=== PATIENT | female | born 1975 | race American Indian/Alaskan Native ===

== ENCOUNTER 2017-03-14 08:54 | Inpatient (IN) | payer MEDICAID ==
--- NOTE | 2017-03-14 09:16 | C.PDOC ---
History Of Present Illness 42 year old female presents to ED for evaluation of intermittent RUQ abdominal pain radiating to her back and right shoulder for the past month. Pt denies any known exacerbating or alleviating factors. Notes that each episodes lasts for about 30 minutes each. Notes being seen at a hospital in [facility] last month, was diagnosed with gallstones, and was recommended to have surgery done but pt opted not to stay for surgery at that time. (+) nausea. Denies dysuria, hematuria, frequency, vomiting, diarrhea, or fever. Time Seen by Provider: 03/14/17 09:14 Chief Complaint (Nursing): Abdominal Pain History Per: Patient History/Exam Limitations: no limitations Onset/Duration Of Symptoms: Days Current Symptoms Are (Timing): Still Present Location Of Pain/Discomfort: RUQ Radiation Of Pain To:: Back Quality Of Discomfort: "Pain" Associated Symptoms: Nausea, Back Pain. denies: Fever, Chills, Diarrhea, Loss Of Appetite, Chest Pain, Constipation, Urinary Symptoms Exacerbating Factors: None Alleviating Factors: None Recent travel outside of the [place]: No Additional History Per: Patient Abnormal Vaginal Bleeding: No Past Medical History Reviewed: Historical Data, Nursing Documentation, Vital Signs Vital Signs: Last Vital Signs Temp 98.9 F 03/17/17 16:00 Pulse 78 03/17/17 16:00 Resp 20 03/17/17 16:00 BP 133/84 03/17/17 16:00 Pulse Ox 100 03/17/17 16:00 - Medical History PMH: Gall Bladder Disease (stones) Surgical History: Appendectomy Family History: States: Unknown Family Hx - Social History Hx Alcohol Use: No Hx Substance Use: No - Immunization History Hx Tetanus Toxoid Vaccination: Yes Hx Influenza Vaccination: No Hx Pneumococcal Vaccination: No Review Of Systems Except As Marked, All Systems Reviewed And Found Negative. Constitutional: Negative for: Fever, Chills Cardiovascular: Negative for: Chest Pain, Palpitations Respiratory: Negative for: Cough, Shortness of Breath Gastrointestinal: Positive for: Nausea, Abdominal Pain. Negative for: Vomiting , Diarrhea, Constipation Genitourinary: Negative for: Dysuria, Frequency, Hematuria Musculoskeletal: Positive for: Shoulder Pain (right), Back Pain Neurological: Negative for: Weakness, Numbness, Headache, Dizziness Physical Exam - Physical Exam Appears: Non-toxic, No Acute Distress Skin: Normal Color, Warm, Dry Head: Atraumatic, Normacephalic Eye(s): bilateral: Normal Inspection Oral Mucosa: Moist Cardiovascular: Rhythm Regular, No Murmur Respiratory: Normal Breath Sounds, No Rales, No Rhonchi, No Wheezing Gastrointestinal/Abdominal: Soft, Tenderness (RUQ), No Guarding, No Rebound Back: No CVA Tenderness Extremity: Normal ROM Neurological/Psych: Oriented x3, Normal Speech ED Course And Treatment - Laboratory Results Result Diagrams: 03/17/17 13:58 03/17/17 13:58 O2 Sat by Pulse Oximetry: 100 (RA) Pulse Ox Interpretation: Normal Medical Decision Making Medical Decision Making: Plan: Blood work Urinalysis Gallbladder ultrasound Toradol IVP Reassess 11:04 EKG is NSR at rate 68 bpm. 11:30 Case discussed with Surgeon Dr. Jackson. Recommends MRCP. Discussed with GI Dr. Reagan who will be in consult as well. Disposition - Disposition Disposition: HOSPITALIZED Disposition Time: 11:30 Condition: GOOD - Clinical Impression Clinical Impression: Cholelithiasis, Biliary colic, Elevated LFTs, Total bilirubin, elevated - Scribe Statement The provider has reviewed the documentation as recorded by the Scribe Maureen Mensah and Daniel Tovar All medical record entries made by the Scribe were at my direction and personally dictated by me. I have reviewed the chart and agree that the record accurately reflects my personal performance of the history, physical exam, medical decision making, and the department course for this patient. I have also personally directed, reviewed, and agree with the discharge instructions and disposition.
[2017-03-14 09:45] LABS: SQUAMOUS EPITHIAL 4 /hpf (0-5); URINE BILIRUBIN NEGATIVE (NEGATIVE); URINE BLOOD 1+ (NEGATIVE); URINE CLARITY Clear (Clear); URINE COLOR Amber (YELLOW); URINE GLUCOSE (UA) NORMAL (Normal); URINE LEUKOCYTE ESTERASE NEG Leu/uL (Negative); URINE NITRATE NEGATIVE (NEGATIVE); URINE PROTEIN NEGATIVE (NEGATIVE)
[2017-03-14 09:46] LABS: BASO # 0.1 K/uL (0.0-0.2); EOS # 0.2 K/uL (0.0-0.7); EOS % 2.6 % (0.0-4.0); HEMOGLOBIN 13.5 g/dL (11.0-16.0); LYMPH % 28.6 % (20.0-40.0); MEAN CELL VOLUME 94.9 fL (81.0-99.0); MEAN CORPUSCULAR HGB CONC 33.7 g/dL (33.0-37.0); MEAN PLATELET VOLUME 7.8 fL (7.2-11.7); MONO # 0.4 K/uL (0.0-0.8); MONO % 5.5 % (0.0-10.0); NEUT # 4.4 K/uL (1.8-7.0); NEUT % 62.3 % (50.0-75.0); RBC 4.22 Mil/uL (3.80-5.20); RED CELL DISTRIBUTION WIDTH 13.4 % (11.5-14.5)
[2017-03-14 10:20] LABS: ALB/GLOB RATIO 1.1 (1.0-2.1); ALBUMIN 4.1 g/dL (3.5-5.0); BLOOD UREA NITROGEN 7 mg/dL (7-17); CALCIUM 8.5 mg/dl (8.6-10.4); GFR AFRICAN-AMERICAN > 60; GFR NON-AFRICAN AMERICAN > 60; LIPASE 175 U/L (23-300)
[2017-03-14 11:00] LABS: ALT/SGPT 1229 U/L (9-52); AST/SGOT 959 U/L (14-36)
--- NOTE | 2017-03-14 11:23 | US ---
HISTORY: ruq pain COMPARISON: None. TECHNIQUE: Sonographic evaluation of the right upper quadrant of the abdomen. FINDINGS: LIVER: Measures 16.1 cm in length. Mild increased slightly heterogeneous echogenicity of the liver parenchyma. No mass. Mild intrahepatic bile duct dilatation. GALLBLADDER: There are multiple gallstones seen. There is mild gallbladder wall thickening measures up to 4.1 millimeter. COMMON BILE DUCT: Measures 5.7 mm. No stones. No dilatation. PANCREAS: Unremarkable as visualized. No mass. No ductal dilatation. RIGHT KIDNEY: Measures 11.1 x 4.8 x 5.2 cm in length. Normal echogenicity. No calculus, mass, or hydronephrosis. AORTA: No aneurysmal dilatation. IVC: Unremarkable. OTHER FINDINGS: None . IMPRESSION: Multiple gallstones and mild gallbladder wall thickening. Prominent intrahepatic biliary ducts. Proximal common bile duct measures 5.7 millimeter. Mildly echogenic liver suggestive of hepatic steatosis.
--- NOTE | 2017-03-14 11:40 | CP.PCM.HP ---
<Bartolo Cotton - Last Filed: 03/14/17 17:01> History of Present Illness - History of Present Illness History of Present Illness: CC "Abdominal pain" HPI: Patient is a 42 year old female with no significant medical history is here complaining of colicky abdominal. Patient says she started having intermittent upper abdominal pain radiating to her upper back for about a month. She says she went to another hospital a month ago and was given Pepcid for which says did not relieve her symptoms. She says she has associated nausea but not vomiting. She says her pain has no associated with pain, is a sharp pain that can be 7 or 8 out of 10 at worst that last for a few hours at a time. She last seen by her PMD a year ago however has had to change PMD due to a change insurance. Patient also denies any fever, chills, vomiting, diarrhea, constipation, dysuria, has not had a menstrual cycle in two years from being on the Deppo shot, rash, dizziness, or lower extremity swelling. PMH: see above Surgeries: 3 c-sections FH: Mother has HTN, Uncle heart disease and cancer SH: Denies smoking, etoh use, illicit drug use, works as an project administrative assistant. PMD: none Present on Admission - Present on Admission Any Indicators Present on Admission: No History of DVT/PE: No History of Uncontrolled Diabetes: No Urinary Catheter: No Decubitus Ulcer Present: No History Surgical Site Infection Following: None Review of Systems - Review of Systems All systems: reviewed and no additional remarkable complaints except - Constitutional Constitutional: absent: Chills, Fever - EENT Eyes: absent: Change in Vision Ears: absent: Dizziness - Cardiovascular Cardiovascular: absent: Diaphoresis, Palpitations - Respiratory Respiratory: Pain on Inspiration. absent: Cough, Dyspnea - Gastrointestinal Gastrointestinal: Abdominal Pain. absent: Constipation, Diarrhea, Nausea, Vomiting - Genitourinary Genitourinary: absent: Difficulty Urinating, Dysuria - Reproductive: Female Reproductive:Female: Amenorrhea - Menstruation Menstruation: Amenorrhea - Neurological Neurological: absent: Weakness - Endocrine Endocrine: absent: Fatigue, Palpitations Past Patient History - Infectious Disease Hx of Infectious Diseases: None - Past Social History Smoking Status: Never Smoked - GASTROINTESTINAL Hx Gall Bladder Disease: Yes (stones) - PSYCHIATRIC Hx Substance Use: No - SURGICAL HISTORY Hx Appendectomy: Yes - ANESTHESIA Hx Anesthesia: Yes Hx Anesthesia Reactions: No Hx Malignant Hyperthermia: No Meds Allergies/Adverse Reactions: Allergies Allergy/AdvReac Type Severity Reaction Status Date / Time No Known Allergies Allergy Verified 02/23/17 17:32 Physical Exam - Constitutional Appears: Non-toxic, No Acute Distress - Eye Exam Eye Exam: Normal appearance, PERRL. absent: Scleral icterus Pupil Exam: NORMAL ACCOMODATION - ENT Exam ENT Exam: Normal Exam - Respiratory Exam Respiratory Exam: Clear to Auscultation Bilateral. absent: Rales, Rhonchi, Wheezes - Cardiovascular Exam Cardiovascular Exam: REGULAR RHYTHM, RRR, +S1, +S2. absent: Gallop, Rubs - GI/Abdominal Exam GI & Abdominal Exam: Normal Bowel Sounds, Soft. absent: Guarding, Organomegaly , Rebound, Tenderness - Extremities Exam Extremities exam: Positive for: normal inspection. Negative for: calf tenderness, pedal edema - Back Exam Back exam: NORMAL INSPECTION. absent: CVA tenderness (L), CVA tenderness (R), paraspinal tenderness - Neurological Exam Neurological exam: Oriented x3 - Psychiatric Exam Psychiatric exam: Normal Affect, Normal Mood - Skin Skin Exam: Dry, Normal Color, Warm Results - Vital Signs Recent Vital Signs: Last Vital Signs Temp 99.4 F 03/14/17 08:57 Pulse 83 03/14/17 08:57 Resp 18 03/14/17 08:57 BP 131/84 03/14/17 08:57 Pulse Ox 100 03/14/17 11:37 - Labs Result Diagrams: 03/14/17 09:38 03/14/17 09:38 Labs: Laboratory Results - last 24 hr 03/14/17 03/14/17 03/14/17 09:23 09:38 09:38 WBC 7.0 RBC 4.22 Hgb 13.5 Hct 40.0 MCV 94.9 MCH 32.0 H MCHC 33.7 RDW 13.4 Plt Count 298 MPV 7.8 Neut % (Auto) 62.3 Lymph % (Auto) 28.6 [place] % (Auto) 5.5 Eos % (Auto) 2.6 Baso % (Auto) 1.0 Neut # 4.4 Lymph # 2.0 [place] # 0.4 Eos # 0.2 Baso # 0.1 Sodium Potassium Chloride Carbon Dioxide Anion Gap BUN Creatinine Est GFR ( Amer) Est GFR (Non-Af Amer) Random Glucose Calcium Total Bilirubin AST ALT Alkaline Phosphatase Total Protein Albumin Globulin Albumin/Globulin Ratio Lipase Urine Color [place] Urine Clarity Clear Urine pH 5.0 Ur Specific [place] 1.015 Urine Protein Negative Urine Glucose (UA) Normal Urine Ketones Negative Urine Blood 1+ H Urine Nitrate Negative Urine Bilirubin Negative Urine Urobilinogen 4.0 H Ur Leukocyte Esterase Neg Urine WBC (Auto) 1 Urine RBC (Auto) 4 H Ur Squamous Epith Cells 4 Urine HCG, Qual Negative 03/14/17 09:38 WBC RBC Hgb Hct MCV MCH MCHC RDW Plt Count MPV Neut % (Auto) Lymph % (Auto) [place] % (Auto) Eos % (Auto) Baso % (Auto) Neut # Lymph # [place] # Eos # Baso # Sodium 137 Potassium 4.1 Chloride 103 Carbon Dioxide 26 Anion Gap 11 BUN 7 Creatinine 0.8 Est GFR ( Amer) > 60 Est GFR (Non-Af Amer) > 60 Random Glucose 91 Calcium 8.5 L Total Bilirubin 2.9 H AST 959 H ALT 1229 H Alkaline Phosphatase 141 H Total Protein 7.7 Albumin 4.1 Globulin 3.6 Albumin/Globulin Ratio 1.1 Lipase 175 Urine Color Urine Clarity Urine pH Ur Specific [place] Urine Protein Urine Glucose (UA) Urine Ketones Urine Blood Urine Nitrate Urine Bilirubin Urine Urobilinogen Ur Leukocyte Esterase Urine WBC (Auto) Urine RBC (Auto) Ur Squamous Epith Cells Urine HCG, Qual Assessment & Plan (1) Biliary colic Assessment and Plan: Patient admitted to regular floor as an inpatient. labs, CXR, and ultrasound were reviewed. Negative Ese sign. Have consulted surgery and GI, help appreciated. US shows gallstones MRCP shows evidence of gallstones without cholecystitis, CBD is normal caliber. Follow up morning labs, cbc, cmp, mag, phos, lipid panel, hbg a1c. Urine preg is negative Lipase is 272 Status: Acute (2) Gall stones Assessment and Plan: as seen on ultrasound, consulted GI and general surgery, help appreciated. Status: Acute (3) Elevated LFTs Assessment and Plan: Will need to follow up Hepatitis panel, Tylenol level. GI recommendation. Most likely secondary to a bilary obstruction. Status: Acute (4) Total bilirubin, elevated Assessment and Plan: See above note, will need to follow up MRCP. Status: Acute (5) Prophylactic measure Assessment and Plan: Emiliex 40mg SQ, SCDS Protonix 40mg IV. Status: Acute <Kaleigh Nava V - Last Filed: 03/14/17 17:57> Results - Vital Signs Recent Vital Signs: Last Vital Signs Temp 98.0 F 03/14/17 13:21 Pulse 80 03/14/17 13:21 Resp 16 03/14/17 13:21 BP 122/85 03/14/17 13:21 Pulse Ox 100 03/14/17 13:21 - Labs Result Diagrams: 03/14/17 09:38 03/14/17 15:56 Labs: Laboratory Results - last 24 hr 03/14/17 03/14/17 03/14/17 09:23 09:38 09:38 WBC 7.0 RBC 4.22 Hgb 13.5 Hct 40.0 MCV 94.9 MCH 32.0 H MCHC 33.7 RDW 13.4 Plt Count 298 MPV 7.8 Neut % (Auto) 62.3 Lymph % (Auto) 28.6 [place] % (Auto) 5.5 Eos % (Auto) 2.6 Baso % (Auto) 1.0 Neut # 4.4 Lymph # 2.0 [place] # 0.4 Eos # 0.2 Baso # 0.1 Sodium Potassium Chloride Carbon Dioxide Anion Gap BUN Creatinine Est GFR ( Amer) Est GFR (Non-Af Amer) Random Glucose Calcium Total Bilirubin AST ALT Alkaline Phosphatase Total Protein Albumin Globulin Albumin/Globulin Ratio Lipase Urine Color [place] Urine Clarity Clear Urine pH 5.0 Ur Specific [place] 1.015 Urine Protein Negative Urine Glucose (UA) Normal Urine Ketones Negative Urine Blood 1+ H Urine Nitrate Negative Urine Bilirubin Negative Urine Urobilinogen 4.0 H Ur Leukocyte Esterase Neg Urine WBC (Auto) 1 Urine RBC (Auto) 4 H Ur Squamous Epith Cells 4 Urine HCG, Qual Negative Acetaminophen Hepatitis A IgM Ab Hep Bs Antigen Hep B Core IgM Ab Hepatitis C Antibody 03/14/17 03/14/17 03/14/17 09:38 13:24 15:56 WBC RBC Hgb Hct MCV MCH MCHC RDW Plt Count MPV Neut % (Auto) Lymph % (Auto) [place] % (Auto) Eos % (Auto) Baso % (Auto) Neut # Lymph # [place] # Eos # Baso # Sodium 137 Potassium 4.1 Chloride 103 Carbon Dioxide 26 Anion Gap 11 BUN 7 Creatinine 0.8 Est GFR ( Amer) > 60 Est GFR (Non-Af Amer) > 60 Random Glucose 91 Calcium 8.5 L Total Bilirubin 2.9 H AST 959 H ALT 1229 H Alkaline Phosphatase 141 H Total Protein 7.7 Albumin 4.1 Globulin 3.6 Albumin/Globulin Ratio 1.1 Lipase 175 Urine Color Urine Clarity Urine pH Ur Specific [place] Urine Protein Urine Glucose (UA) Urine Ketones Urine Blood Urine Nitrate Urine Bilirubin Urine Urobilinogen Ur Leukocyte Esterase Urine WBC (Auto) Urine RBC (Auto) Ur Squamous Epith Cells Urine HCG, Qual Acetaminophen < 10.0 L Hepatitis A IgM Ab Negative Hep Bs Antigen Negative Hep B Core IgM Ab Negative Hepatitis C Antibody Negative 03/14/17 15:56 WBC RBC Hgb Hct MCV MCH MCHC RDW Plt Count MPV Neut % (Auto) Lymph % (Auto) [place] % (Auto) Eos % (Auto) Baso % (Auto) Neut # Lymph # [place] # Eos # Baso # Sodium 136 Potassium 4.2 Chloride 104 Carbon Dioxide 26 Anion Gap 11 BUN 7 Creatinine 0.7 Est GFR ( Amer) > 60 Est GFR (Non-Af Amer) > 60 Random Glucose 70 Calcium 8.0 L Total Bilirubin 5.1 H AST 735 H D ALT 1157 H Alkaline Phosphatase 150 H Total Protein 7.7 Albumin 4.0 Globulin 3.7 Albumin/Globulin Ratio 1.1 Lipase Urine Color Urine Clarity Urine pH Ur Specific [place] Urine Protein Urine Glucose (UA) Urine Ketones Urine Blood Urine Nitrate Urine Bilirubin Urine Urobilinogen Ur Leukocyte Esterase Urine WBC (Auto) Urine RBC (Auto) Ur Squamous Epith Cells Urine HCG, Qual Acetaminophen Hepatitis A IgM Ab Hep Bs Antigen Hep B Core IgM Ab Hepatitis C Antibody Attending/Attestation - Attestation I have personally seen and examined this patient.: Yes I have fully participated in the care of the patient.: Yes I have reviewed all pertinent clinical information: Yes Notes (Text): Patient seen, examined and case discussed with day-time resident. Patient seen in [address] in the Emergency Room at 12:10PM on 03/14/17. ED Physician has spoken with surgeon, Dr Jackson, requested for GI consult and MRCP. Patient accompanied with her at bedside. 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 Patient reports she had called the ambulance and brought her to [facility]. Patient was told she had gallstones and was recommended for surgery. This the first time she has been told she has had gallstones. Patient however had to chart picker her children and did not have coverage in [place] left the ED in the evening. Patient reports became more frequent today which is why she is back in the hospital. Patient reports she went to [place] last month, but was given Famotidine but has not had relief. Patient reports sparingly uses tylenol. Patient denies prior liver history. patient denies medical history but reports she has not had well physical for the past year. I reviewed EKG which is normal sinus rhythm. Assessment/Plan (1) Biliary colic Cholelithiasis Assessment and Plan: * Patient admitted to regular floor as an inpatient. * General surgery (Dr. Jackson) on board-->help appreciated * GI (Dr. Reagan) on board-->help appreciated * Abdominal US (03/14/17): multiple gallstones and mild gallbladder wall thickening. Prominent intrahepatic biliary ducts. Proximal common bile duct measures 5.7mm. Mildly echogenic liver suggestive of hepatic steatosis * MRCP (03/14/17): gallstones without evidence of acute cholecystitis. Mildly distended gallbladder. CBD is normal in caliber and shape. No evidence of choledocholithiasis. No evidence of acute pathology in upper abdomen. * Antibiotics: * Flagyl 500mg IVQ 8H (Active since 03/14/17) * Ciprofloxacin 400mg IVPB Q12H (Active since 03/14/17) * Lipase is 272 * Afebrile, does not appear jaundice, and mild RUQ * Pending HIDA Status: Acute (2) Transaminitis Assessment and Plan: * GI (Dr. Reagan) on board-->help appreciated * Tylenol level <10.0 * Hepatitis panel: negative * Epistein Hunter virus, liver Kidney, mitcohondrial, smooth muscle ordered, antinuclear Status: Acute (3) Obesity Assessment and Plan: * Check lipid panel, TSH, [id number] Status: Chronic (4) Prophylactic measure Assessment and Plan: * Lovenox 40mg SQdaily * SCDS * Protonix 40mg IV daily * NS 125 cc/hr * Zofran 4mg IVQ6H PRN nausea Status: Acute
--- NOTE | 2017-03-14 11:43 | RAD ---
PROCEDURE: CHEST RADIOGRAPH, 1 VIEW HISTORY: preop COMPARISON: None available. FINDINGS: LUNGS: Clear. PLEURA: No pneumothorax or pleural fluid seen. CARDIOVASCULAR: Normal. OSSEOUS STRUCTURES: No significant abnormalities. VISUALIZED UPPER ABDOMEN: Normal. OTHER FINDINGS: None. IMPRESSION: No active disease.
[2017-03-14] MEDS ORDERED: Pantoprazole 40 mg EC Tab PO SCH (12:45)
[2017-03-14 14:12] LABS: HEPATITIS B SURFACE AG NEGATIVE (NEGATIVE)
[2017-03-14 14:18] LABS: HEPATITIS A IGM NEGATIVE (NEGATIVE); HEPATITIS B CORE AB Negative (NEGATIVE)
--- NOTE | 2017-03-14 14:22 | MRI ---
PROCEDURE: Magnetic Resonance Cholangiopancreatography HISTORY: COMPARISON: Comparison is made with the previous same-day ultrasound of the gallbladder. TECHNIQUE: Multiplanar, multisequence MR images of the abdomen were obtained, including heavily T2 weighted MRCP images of the biliary system. Rotating maximum intensity projection images of the biliary system were generated. FINDINGS: MRCP: The common bile duct is of a normal caliber. No evidence of choledocholithiasis. No intrahepatic biliary ductal dilatation. LIVER: Mild hepatic steatosis is noted. There is 8 millimeter cyst seen at the liver dome. Otherwise the liver is grossly unremarkable. GALLBLADDER: Small gallstones and sludge noted in the gallbladder. No evidence of acute cholecystitis. The gallbladder is mildly distended. SPLEEN: Unremarkable. PANCREAS: Unremarkable. ADRENALS: Unremarkable. KIDNEYS: There is 1.2 centimeter cyst at the posterior aspect of the right kidney upper pole. There is sub centimeter cyst also seen at the upper pole of the left kidney. No evidence of hydronephrosis. AORTA: No aneurysm. ASCITES: None. OTHER FINDINGS: Trace bilateral pleural effusion seen. IMPRESSION: Gallstones without evidence of acute cholecystitis. Mildly distended gallbladder. The CBD is normal in caliber and shape. No evidence of choledocholithiasis. No evidence of acute pathology in the upper abdomen.
[2017-03-14 14:29] LABS: HEPATITIS C ANTIBODY Negative (NEGATIVE)
[2017-03-14] MEDS ORDERED: Ciprofloxacin 400mg/200ml D5W 400 MG/200 ML BAG IVPB SCH ×2 (14:30→18:00)
--- NOTE | 2017-03-14 14:34 | CP.PCM.CON ---
History of Present Illness - History of Present Illness History of Present Illness: CC: RUQ pain HPI: Patient developed intense RUQ pain yesterday and went to [facility] but left and came here today. Found to have markedly elevated LFTs in hepatocellular pattern, and gallstones without ductal dilatation noted on sonogram. MRCP reveals no stones in CBD. Past Patient History - Infectious Disease Hx of Infectious Diseases: None - Past Social History Smoking Status: Never Smoked - GASTROINTESTINAL Hx Gall Bladder Disease: Yes (stones) - PSYCHIATRIC Hx Substance Use: No - SURGICAL HISTORY Hx Appendectomy: Yes - ANESTHESIA Hx Anesthesia: Yes Hx Anesthesia Reactions: No Hx Malignant Hyperthermia: No Meds Allergies/Adverse Reactions: Allergies Allergy/AdvReac Type Severity Reaction Status Date / Time No Known Allergies Allergy Verified 02/23/17 17:32 - Medications Medications: Current Medications Enoxaparin Sodium (Lovenox) 40 mg SC DAILY [facility] Hydromorphone HCl (Dilaudid) 0.5 mg IVP Q3 PRN PRN Reason: Pain, moderate (4-7) Ciprofloxacin (Cipro 400mg/200ml Dsw) 400 mg in 200 mls @ 133 mls/hr IVPB Q8H [facility] Metronidazole (Flagyl) 500 mg in 100 mls @ 100 mls/hr IVPB Q8 [facility] Sodium Chloride (Sodium Chloride 0.9%) 1,000 mls @ 125 mls/hr IV .Q8H [facility] Ondansetron HCl (Zofran Inj) 4 mg IVP Q6 PRN PRN Reason: Nausea/Vomiting Pantoprazole Sodium (Protonix Inj) 40 mg IVP DAILY [facility] Last Admin: 03/14/17 13:36 Dose: 40 mg Results - Vital Signs Recent Vital Signs: Last Vital Signs Temp 98.0 F 03/14/17 13:21 Pulse 80 03/14/17 13:21 Resp 16 03/14/17 13:21 BP 122/85 03/14/17 13:21 Pulse Ox 100 03/14/17 13:21 - Labs Result Diagrams: 03/14/17 09:38 03/14/17 09:38 Labs: Laboratory Results - last 24 hr 03/14/17 03/14/17 03/14/17 09:23 09:38 09:38 WBC 7.0 RBC 4.22 Hgb 13.5 Hct 40.0 MCV 94.9 MCH 32.0 H MCHC 33.7 RDW 13.4 Plt Count 298 MPV 7.8 Neut % (Auto) 62.3 Lymph % (Auto) 28.6 [place] % (Auto) 5.5 Eos % (Auto) 2.6 Baso % (Auto) 1.0 Neut # 4.4 Lymph # 2.0 [place] # 0.4 Eos # 0.2 Baso # 0.1 Sodium Potassium Chloride Carbon Dioxide Anion Gap BUN Creatinine Est GFR ( Amer) Est GFR (Non-Af Amer) Random Glucose Calcium Total Bilirubin AST ALT Alkaline Phosphatase Total Protein Albumin Globulin Albumin/Globulin Ratio Lipase Urine Color [place] Urine Clarity Clear Urine pH 5.0 Ur Specific [place] 1.015 Urine Protein Negative Urine Glucose (UA) Normal Urine Ketones Negative Urine Blood 1+ H Urine Nitrate Negative Urine Bilirubin Negative Urine Urobilinogen 4.0 H Ur Leukocyte Esterase Neg Urine WBC (Auto) 1 Urine RBC (Auto) 4 H Ur Squamous Epith Cells 4 Urine HCG, Qual Negative Hepatitis A IgM Ab Hep Bs Antigen Hep B Core IgM Ab Hepatitis C Antibody 03/14/17 03/14/17 09:38 13:24 WBC RBC Hgb Hct MCV MCH MCHC RDW Plt Count MPV Neut % (Auto) Lymph % (Auto) [place] % (Auto) Eos % (Auto) Baso % (Auto) Neut # Lymph # [place] # Eos # Baso # Sodium 137 Potassium 4.1 Chloride 103 Carbon Dioxide 26 Anion Gap 11 BUN 7 Creatinine 0.8 Est GFR ( Amer) > 60 Est GFR (Non-Af Amer) > 60 Random Glucose 91 Calcium 8.5 L Total Bilirubin 2.9 H AST 959 H ALT 1229 H Alkaline Phosphatase 141 H Total Protein 7.7 Albumin 4.1 Globulin 3.6 Albumin/Globulin Ratio 1.1 Lipase 175 Urine Color Urine Clarity Urine pH Ur Specific [place] Urine Protein Urine Glucose (UA) Urine Ketones Urine Blood Urine Nitrate Urine Bilirubin Urine Urobilinogen Ur Leukocyte Esterase Urine WBC (Auto) Urine RBC (Auto) Ur Squamous Epith Cells Urine HCG, Qual Hepatitis A IgM Ab Negative Hep Bs Antigen Negative Hep B Core IgM Ab Negative Hepatitis C Antibody Negative Assessment & Plan (1) Cholelithiasis Assessment and Plan: Possible cholecystitis rec: HIDA. Surg consult Status: Acute (2) Elevated LFTs Assessment and Plan: R/O hepatitis rec: hep profile. See orders Status: Acute
[2017-03-14] MEDS: metroNIDAZOLE IV 500 mg/100 ml 500 MG/100 ML BAG IVPB SCH ×2 (14:40→21:13)
--- NOTE | 2017-03-14 15:12 | CP.PCM.CON ---
History of Present Illness - History of Present Illness History of Present Illness: General Surgery Dr. Jackson 42 y/o F w/ PMHx of gallstones presents to the ED c/o RUQ abd pain. Pt reports intermittent RUQ abd pain w/ radiation to her back x1mon. Pt was seen in another hospital ED at which time, pt was Dx w/ gallstones. Pt decided not to have surgery at that time. Nothing seems to make pain better or worse. Pt admits to nausea but denies F/C, vomiting, D/C. US performed in ED shows cholelithiasis but no cholecystitis or choledocholithaisis. MRCP is also negative for acute cholecystitis and choledocholithiasis. PMHx: see above Meds: reviewed in chart NKDA PSHx: x3 FHx: HTN, HD SHx: denies tobacco, EtOH, drug use Review of Systems - Review of Systems All systems: reviewed and no additional remarkable complaints except (see HPI) Past Patient History - Infectious Disease Hx of Infectious Diseases: None - Past Medical History & Family History Past Medical History?: Yes - Past Social History Smoking Status: Never Smoked - MUSCULOSKELETAL/RHEUMATOLOGICAL Hx Falls: No - GASTROINTESTINAL Hx Gall Bladder Disease: Yes (stones) - GENITOURINARY/GYNECOLOGICAL Hx Urinary Tract Infection: Yes - PSYCHIATRIC Hx Substance Use: No - SURGICAL HISTORY Hx Appendectomy: Yes - ANESTHESIA Hx Anesthesia: Yes Hx Anesthesia Reactions: No Hx Malignant Hyperthermia: No Meds Allergies/Adverse Reactions: Allergies Allergy/AdvReac Type Severity Reaction Status Date / Time No Known Allergies Allergy Verified 02/23/17 17:32 - Medications Medications: Current Medications Enoxaparin Sodium (Lovenox) 40 mg SC DAILY [facility] Hydromorphone HCl (Dilaudid) 0.5 mg IVP Q3 PRN PRN Reason: Pain, moderate (4-7) Ciprofloxacin (Cipro 400mg/200ml Dsw) 400 mg in 200 mls @ 133 mls/hr IVPB Q8H [facility] Metronidazole (Flagyl) 500 mg in 100 mls @ 100 mls/hr IVPB Q8 [facility] Last Admin: 03/14/17 14:40 Dose: 100 mls/hr Sodium Chloride (Sodium Chloride 0.9%) 1,000 mls @ 125 mls/hr IV .Q8H [facility] Ondansetron HCl (Zofran Inj) 4 mg IVP Q6 PRN PRN Reason: Nausea/Vomiting Pantoprazole Sodium (Protonix Inj) 40 mg IVP DAILY [facility] Last Admin: 03/14/17 13:36 Dose: 40 mg Physical Exam - Constitutional Appears: Non-toxic, No Acute Distress - Head Exam Head Exam: NORMAL INSPECTION - Eye Exam Eye Exam: Normal appearance - ENT Exam ENT Exam: Mucous Membranes Moist - Respiratory Exam Respiratory Exam: NORMAL BREATHING PATTERN. absent: Accessory Muscle Use, Respiratory Distress - Cardiovascular Exam Cardiovascular Exam: absent: Bradycardia, Tachycardia - GI/Abdominal Exam GI & Abdominal Exam: Soft, Tenderness (epigastric/RUQ TTP). absent: Distended, Firm, Guarding, Rebound, Rigid - Extremities Exam Extremities exam: Positive for: normal inspection - Neurological Exam Neurological exam: Alert, Oriented x3 - Psychiatric Exam Psychiatric exam: Normal Affect, Normal Mood - Skin Skin Exam: Dry, Intact, Normal Color, Warm Results - Vital Signs Recent Vital Signs: Last Vital Signs Temp 98.0 F 03/14/17 13:21 Pulse 80 03/14/17 13:21 Resp 16 03/14/17 13:21 BP 122/85 03/14/17 13:21 Pulse Ox 100 03/14/17 13:21 - Labs Result Diagrams: 03/14/17 09:38 03/14/17 09:38 Labs: Laboratory Results - last 24 hr 03/14/17 03/14/17 03/14/17 09:23 09:38 09:38 WBC 7.0 RBC 4.22 Hgb 13.5 Hct 40.0 MCV 94.9 MCH 32.0 H MCHC 33.7 RDW 13.4 Plt Count 298 MPV 7.8 Neut % (Auto) 62.3 Lymph % (Auto) 28.6 [place] % (Auto) 5.5 Eos % (Auto) 2.6 Baso % (Auto) 1.0 Neut # 4.4 Lymph # 2.0 [place] # 0.4 Eos # 0.2 Baso # 0.1 Sodium Potassium Chloride Carbon Dioxide Anion Gap BUN Creatinine Est GFR ( Amer) Est GFR (Non-Af Amer) Random Glucose Calcium Total Bilirubin AST ALT Alkaline Phosphatase Total Protein Albumin Globulin Albumin/Globulin Ratio Lipase Urine Color [place] Urine Clarity Clear Urine pH 5.0 Ur Specific [place] 1.015 Urine Protein Negative Urine Glucose (UA) Normal Urine Ketones Negative Urine Blood 1+ H Urine Nitrate Negative Urine Bilirubin Negative Urine Urobilinogen 4.0 H Ur Leukocyte Esterase Neg Urine WBC (Auto) 1 Urine RBC (Auto) 4 H Ur Squamous Epith Cells 4 Urine HCG, Qual Negative Hepatitis A IgM Ab Hep Bs Antigen Hep B Core IgM Ab Hepatitis C Antibody 03/14/17 03/14/17 09:38 13:24 WBC RBC Hgb Hct MCV MCH MCHC RDW Plt Count MPV Neut % (Auto) Lymph % (Auto) [place] % (Auto) Eos % (Auto) Baso % (Auto) Neut # Lymph # [place] # Eos # Baso # Sodium 137 Potassium 4.1 Chloride 103 Carbon Dioxide 26 Anion Gap 11 BUN 7 Creatinine 0.8 Est GFR ( Amer) > 60 Est GFR (Non-Af Amer) > 60 Random Glucose 91 Calcium 8.5 L Total Bilirubin 2.9 H AST 959 H ALT 1229 H Alkaline Phosphatase 141 H Total Protein 7.7 Albumin 4.1 Globulin 3.6 Albumin/Globulin Ratio 1.1 Lipase 175 Urine Color Urine Clarity Urine pH Ur Specific [place] Urine Protein Urine Glucose (UA) Urine Ketones Urine Blood Urine Nitrate Urine Bilirubin Urine Urobilinogen Ur Leukocyte Esterase Urine WBC (Auto) Urine RBC (Auto) Ur Squamous Epith Cells Urine HCG, Qual Hepatitis A IgM Ab Negative Hep Bs Antigen Negative Hep B Core IgM Ab Negative Hepatitis C Antibody Negative - Imaging and Cardiology US - abdomen Status: Image reviewed by me, Report reviewed by me MRI - abdomen Status: Image reviewed by me, Report reviewed by me Assessment & Plan - Assessment and Plan (Free Text) Assessment: 42 y/o F w/ abd pain 2/2 biliary cholic vs acute cholecystitis w/ transaminitis and hyperbilirubinemia - repeat CMP - will order HIDA if no improvement in LFTs/T. Bili - f/u GI recs - f/u Hepatitis panel - cont pain management - cont anti-emetic - GI/DVT PPx Pt seen and discussed w/ Dr. Renetta Hughes DO PGY2
[2017-03-14] MEDS: Sodium Chloride 0.9% 1,000 ML IV SCH ×2 (15:21→22:20)
[2017-03-14 16:17] LABS: ALB/GLOB RATIO 1.1 (1.0-2.1); AST/SGOT 735 U/L (14-36); BLOOD UREA NITROGEN 7 mg/dL (7-17); GFR AFRICAN-AMERICAN > 60; GFR NON-AFRICAN AMERICAN > 60
[2017-03-14 16:23] LABS: ALT/SGPT 1157 U/L (9-52)
--- NOTE | 2017-03-14 23:14 | NM ---
EXAM: NM Hepatobiliary Scan CLINICAL HISTORY: 42 years old, female; Pain; Ruq pain; Additional info: Ruq pain, gallstones TECHNIQUE: Frontal dynamic images of the abdomen and pelvis were obtained over 60 minutes following the intravenous administration of 6 mCi Tc99m mebrofenin. Delayed images were acquired at 3 hours. COMPARISON: No relevant prior studies available. FINDINGS: Liver: Unremarkable. Homogeneous radiotracer uptake. Bile ducts: Unremarkable. Clearly visualized. Gallbladder: Nonvisualization at 3 hours. Stomach and bowel: Unremarkable. Radiotracer activity is seen in the small bowel. IMPRESSION: Nonvisualization of gallbladder at 3 hours. Findings consistent with acute cholecystitis in the appropriate clinical setting.
[2017-03-15] MEDS: Ciprofloxacin 400mg/200ml D5W 400 MG/200 ML BAG IVPB SCH ×2 (01:41→15:12)
[2017-03-15] MEDS: metroNIDAZOLE IV 500 mg/100 ml 500 MG/100 ML BAG IVPB SCH ×3 (05:24→21:26)
--- NOTE | 2017-03-15 08:01 | CP.PCM.PN ---
Objective - Vital Signs/Intake and Output Vital Signs (last 24 hours): Temp Pulse Resp BP Pulse Ox 98.5 F 80 20 105/68 98 03/15/17 00:00 03/15/17 00:00 03/15/17 00:00 03/15/17 00:00 03/15/17 00:00 Intake and Output: 03/15/17 03/15/17 06:59 18:59 Intake Total 975 Balance 975 - Medications Medications: Current Medications Enoxaparin Sodium (Lovenox) 40 mg SC DAILY [facility] Hydromorphone HCl (Dilaudid) 0.5 mg IVP Q3 PRN PRN Reason: Pain, moderate (4-7) Last Admin: 03/15/17 02:20 Dose: 0.5 mg Metronidazole (Flagyl) 500 mg in 100 mls @ 100 mls/hr IVPB Q8 [facility] Last Admin: 03/15/17 05:24 Dose: 100 mls/hr Sodium Chloride (Sodium Chloride 0.9%) 1,000 mls @ 125 mls/hr IV .Q8H [facility] Last Admin: 03/14/17 22:20 Dose: Not Given Ciprofloxacin (Cipro 400mg/200ml Dsw) 400 mg in 200 mls @ 133 mls/hr IVPB Q12H [facility] Last Admin: 03/15/17 01:41 Dose: 133 mls/hr Ondansetron HCl (Zofran Inj) 4 mg IVP Q6 PRN PRN Reason: Nausea/Vomiting Pantoprazole Sodium (Protonix Inj) 40 mg IVP DAILY [facility] Last Admin: 03/14/17 13:36 Dose: 40 mg - Labs Labs: 03/14/17 09:38 03/14/17 15:56 Assessment and Plan (1) Biliary colic Status: Acute (2) Gall stones Status: Acute (3) Elevated LFTs Status: Acute (4) Total bilirubin, elevated Status: Acute (5) Prophylactic measure Status: Acute
[2017-03-15] MEDS: Sodium Chloride 0.9% 1,000 ML IV SCH (08:13)
[2017-03-15 08:15] LABS: BASO % 0.7 % (0.0-2.0); EOS # 0.1 K/uL (0.0-0.7); EOS % 2.3 % (0.0-4.0); HEMOGLOBIN 12.5 g/dL (11.0-16.0); LYMPH # 1.3 K/uL (1.0-4.3); LYMPH % 24.3 % (20.0-40.0); MEAN CELL VOLUME 94.5 fL (81.0-99.0); MEAN CORPUSCULAR HEMOGLOBIN 32.3 pg (27.0-31.0); MEAN CORPUSCULAR HGB CONC 34.2 g/dL (33.0-37.0); MEAN PLATELET VOLUME 8.1 fL (7.2-11.7); MONO # 0.4 K/uL (0.0-0.8); MONO % 6.3 % (0.0-10.0); NEUT # 3.7 K/uL (1.8-7.0); NEUT % 66.4 % (50.0-75.0); NRBC % 0.1 % (0.0-2.0); RBC 3.88 Mil/uL (3.80-5.20); RED CELL DISTRIBUTION WIDTH 13.5 % (11.5-14.5); WHITE BLOOD COUNT 5.5 K/uL (4.8-10.8)
[2017-03-15 08:22] LABS: INR 1.2; PROTHROMBIN TIME 13.1 SECONDS (9.7-12.2)
[2017-03-15 08:38] LABS: ALB/GLOB RATIO 1.1 (1.0-2.1); ALBUMIN 3.9 g/dL (3.5-5.0); ALT/SGPT 900 U/L (9-52); AST/SGOT 424 U/L (14-36); BLOOD UREA NITROGEN 8 mg/dL (7-17); CALCIUM 8.4 mg/dl (8.6-10.4); GFR AFRICAN-AMERICAN > 60; GFR NON-AFRICAN AMERICAN > 60; HDL CHOLESTEROL 54 mg/dL (30-70); MAGNESIUM 1.9 mg/dL (1.6-2.3)
[2017-03-15 08:42] LABS: LDL CHOLESTEROL 93 mg/dL (0-129)
--- NOTE | 2017-03-15 09:37 | CP.PCM.PN ---
Subjective - Date & Time of Evaluation Date of Evaluation: 03/15/17 Time of Evaluation: 09:35 - Subjective Subjective: Medical Attending Note: Patient seen and examined at bedside. Patient reports around 1AM, she had abdominal pain, which required PRN pain medication. Patient continues to feel nauseous. Patient denies fever, denies chills, denies chest pain, denies palpitations, +abdominal pain, +nausea, denies constipation, denies dysuria, denies hematuria. Objective - Vital Signs/Intake and Output Vital Signs (last 24 hours): Temp Pulse Resp BP Pulse Ox 99.1 F 82 20 124/81 97 03/15/17 08:00 03/15/17 08:00 03/15/17 08:00 03/15/17 08:00 03/15/17 08:00 Intake and Output: 03/15/17 03/15/17 06:59 18:59 Intake Total 975 Balance 975 - Medications Medications: Current Medications Hydromorphone HCl (Dilaudid) 0.5 mg IVP Q3 PRN PRN Reason: Pain, moderate (4-7) Last Admin: 03/15/17 02:20 Dose: 0.5 mg Metronidazole (Flagyl) 500 mg in 100 mls @ 100 mls/hr IVPB Q8 [facility] Last Admin: 03/15/17 05:24 Dose: 100 mls/hr Sodium Chloride (Sodium Chloride 0.9%) 1,000 mls @ 125 mls/hr IV .Q8H [facility] Last Admin: 03/15/17 08:13 Dose: Not Given Ciprofloxacin (Cipro 400mg/200ml Dsw) 400 mg in 200 mls @ 133 mls/hr IVPB Q12H [facility] Last Admin: 03/15/17 01:41 Dose: 133 mls/hr Ondansetron HCl (Zofran Inj) 4 mg IVP Q6 PRN PRN Reason: Nausea/Vomiting Pantoprazole Sodium (Protonix Inj) 40 mg IVP DAILY [facility] Last Admin: 03/14/17 13:36 Dose: 40 mg - Labs Labs: 03/15/17 08:04 03/15/17 08:04 PT 13.1 SECONDS (9.7-12.2) H 03/15/17 08:04 INR 1.2 03/15/17 08:04 APTT 26 SECONDS (21-34) 03/15/17 08:04 - Constitutional Appears: Non-toxic, No Acute Distress - Head Exam Head Exam: NORMAL INSPECTION - Eye Exam Eye Exam: EOMI, PERRL - ENT Exam ENT Exam: Mucous Membranes Moist - Respiratory Exam Respiratory Exam: Clear to Ausculation Bilateral, NORMAL BREATHING PATTERN. absent: Rales, Rhonchi, Wheezes - Cardiovascular Exam Cardiovascular Exam: REGULAR RHYTHM, +S1, +S2 - GI/Abdominal Exam GI & Abdominal Exam: Soft, Normal Bowel Sounds. absent: Distended, Firm, Guarding, Rigid, Tenderness, Rebound - Extremities Exam Extremities Exam: absent: Pedal Edema, Tenderness Additional comments: butterfly tatoo over right lower extremity - Back Exam Back Exam: absent: CVA tenderness (L), CVA tenderness (R) - Neurological Exam Neurological Exam: Alert, Awake, Oriented x3 Neuro motor strength exam: Left Upper Extremity: 5, Right Upper Extremity: 5, Left Lower Extremity: 5, Right Lower Extremity: 5 - Psychiatric Exam Psychiatric exam: Normal Affect, Normal Mood - Skin Skin Exam: Dry, Intact, Normal Color, Warm. absent: Petechiae, Rash Assessment and Plan (1) Acute cholecystitis Assessment & Plan: General surgery (Dr. Jackson) on consult-->help appreciated GI (Dr. Reagan) on consult-->help appreciated Chest Xray (03/14/17): no active disease EKG (03/14/17): normal sinus rhythm Patient is symptomatic of pain and nausea. HIDA (03/14/17): nonvisualization of gallbladder at 3 hours. Findings consistent with acute cholecystitis in appropriate clinical setting. MRCP (03/14/17): gallstones without evidence of acute cholecystitis. Mild distended gallbladder. CBD is normal in caliber and shape. No evidence of choledocholithiasis. No evidence of acute pathology in upper abdomen. Gallbladder US (03/14/17): multiple gallstones and mild gallbladder wall thickening. Prominent intrahepatic biliary ducts. Proximal common bile duct measures 5.7 mm. Mildly echogenic liver suggestive of hepatic steatosis. As per Detsky's Critiera , patient's cardiac risk index is low with class I 6% complications. Surgery and anesthesia to explain risks and benefits respectively if surgery is warranted. Discussed case with Dr. Jackson (general surgery), he would like input from GI to see if additional workup is needed by GI given elevated direct bilirubin yesterday evening; discussed blood work results from today. Will f/u GI when they start their rounds. Ciprofloxacin 400mg IVPB Q12H (active 03/15/17) Flagyl 500mg IVPB Q8H (active 03/15/17) Status: Acute (2) Transaminitis Assessment & Plan: Liver enzymes down trending HIDA (03/14/17): nonvisualization of gallbladder at 3 hours. Findings consistent with acute cholecystitis in appropriate clinical setting. MRCP (03/14/17): gallstones without evidence of acute cholecystitis. Mild distended gallbladder. CBD is normal in caliber and shape. No evidence of choledocholithiasis. No evidence of acute pathology in upper abdomen. Gallbladder US (03/14/17): multiple gallstones and mild gallbladder wall thickening. Prominent intrahepatic biliary ducts. Proximal common bile duct measures 5.7 mm. Mildly echogenic liver suggestive of hepatic steatosis. Tylenol level: negative Hepatitis panel: negative Status: Acute (3) Obesity Assessment & Plan: Lipid panel: within normal limits pending [id number] Status: Chronic (4) Cholelithiasis Assessment & Plan: HIDA (03/14/17): nonvisualization of gallbladder at 3 hours. Findings consistent with acute cholecystitis in appropriate clinical setting. MRCP (03/14/17): gallstones without evidence of acute cholecystitis. Mild distended gallbladder. CBD is normal in caliber and shape. No evidence of choledocholithiasis. No evidence of acute pathology in upper abdomen. Gallbladder US (03/14/17): multiple gallstones and mild gallbladder wall thickening. Prominent intrahepatic biliary ducts. Proximal common bile duct measures 5.7 mm. Mildly echogenic liver suggestive of hepatic steatosis. General surgery (Dr. Jackson) on board-->help appreciated GI (Dr. Reagan) on board-->help appreciated Discussed case with surgery, would like input from GI in regards to additional workup needed. Status: Acute (5) Prophylactic measure Assessment & Plan: c/w Lovenox 40mg subqdaily * No plans for surgery today; general surgery awaiting input from GI if additional workup is needed c/w protonix 40mg IVq daily Dilaudid 0.5mg IVP Q3PRN pain moderate Zofran 4mg IVP Q 6H PRN nausea/vomitting NS 125 cc/hr Status: Acute
[2017-03-15] MEDS ORDERED: Enoxaparin 40 mg Syringe SC SCH ×2 (10:00→10:15)
--- NOTE | 2017-03-15 10:13 | CP.PCM.PN ---
Subjective - Date & Time of Evaluation Date of Evaluation: 03/15/17 Time of Evaluation: 10:09 - Subjective Subjective: CC: RUQ pain Cholecystitis confirmed by ABDULAZIZ Feels better, RUQ pain under control Says she was seen by surgeon and plans for cholecystectomy are underway Objective - Vital Signs/Intake and Output Vital Signs (last 24 hours): Temp Pulse Resp BP Pulse Ox 99.1 F 82 20 124/81 97 03/15/17 08:00 03/15/17 08:00 03/15/17 08:00 03/15/17 08:00 03/15/17 08:00 Intake and Output: 03/15/17 03/15/17 06:59 18:59 Intake Total 975 Balance 975 - Medications Medications: Current Medications Hydromorphone HCl (Dilaudid) 0.5 mg IVP Q3 PRN PRN Reason: Pain, moderate (4-7) Last Admin: 03/15/17 02:20 Dose: 0.5 mg Metronidazole (Flagyl) 500 mg in 100 mls @ 100 mls/hr IVPB Q8 [facility] Last Admin: 03/15/17 05:24 Dose: 100 mls/hr Sodium Chloride (Sodium Chloride 0.9%) 1,000 mls @ 125 mls/hr IV .Q8H [facility] Last Admin: 03/15/17 08:13 Dose: Not Given Ciprofloxacin (Cipro 400mg/200ml Dsw) 400 mg in 200 mls @ 133 mls/hr IVPB Q12H [facility] Last Admin: 03/15/17 01:41 Dose: 133 mls/hr Ondansetron HCl (Zofran Inj) 4 mg IVP Q6 PRN PRN Reason: Nausea/Vomiting Pantoprazole Sodium (Protonix Inj) 40 mg IVP DAILY [facility] Last Admin: 03/14/17 13:36 Dose: 40 mg - Labs Labs: 03/15/17 08:04 03/15/17 08:04 PT 13.1 SECONDS (9.7-12.2) H 03/15/17 08:04 INR 1.2 03/15/17 08:04 APTT 26 SECONDS (21-34) 03/15/17 08:04 - Constitutional Appears: Well, No Acute Distress - Head Exam Head Exam: NORMOCEPHALIC - Eye Exam Eye Exam: absent: Scleral icterus - Respiratory Exam Respiratory Exam: Clear to Ausculation Bilateral - Cardiovascular Exam Cardiovascular Exam: REGULAR RHYTHM - GI/Abdominal Exam GI & Abdominal Exam: Soft. absent: Tenderness - Neurological Exam Neurological Exam: Alert, Awake, Oriented x3 Assessment and Plan (1) Cholelithiasis Assessment & Plan: Acute Cholecystitis Rec: Lap Dalila. No further GI workup planned. Discussed with dr Nava Status: Acute (2) Elevated LFTs Assessment & Plan: Due to cholecystitis Should gradually improve Status: Acute
--- NOTE | 2017-03-15 10:52 | CP.PCM.PN ---
Subjective - Date & Time of Evaluation Date of Evaluation: 03/15/17 Time of Evaluation: 07:15 - Subjective Subjective: General surgery progress note for Dr. Brittany Sharma, PGY-1 Pt S & E at bedside. Pt reports improved ab pain overnight, continues with some nausea. Denies emesis, F & C, other problems, ever having ab pain before. Objective - Vital Signs/Intake and Output Vital Signs (last 24 hours): Temp Pulse Resp BP Pulse Ox 99.1 F 82 20 124/81 97 03/15/17 08:00 03/15/17 08:00 03/15/17 08:00 03/15/17 08:00 03/15/17 08:00 Intake and Output: 03/15/17 03/15/17 06:59 18:59 Intake Total 975 Balance 975 - Medications Medications: Current Medications Enoxaparin Sodium (Lovenox) 40 mg SC DAILY [facility] Last Admin: 03/15/17 10:23 Dose: 40 mg Hydromorphone HCl (Dilaudid) 0.5 mg IVP Q3 PRN PRN Reason: Pain, moderate (4-7) Last Admin: 03/15/17 02:20 Dose: 0.5 mg Metronidazole (Flagyl) 500 mg in 100 mls @ 100 mls/hr IVPB Q8 [facility] Last Admin: 03/15/17 05:24 Dose: 100 mls/hr Sodium Chloride (Sodium Chloride 0.9%) 1,000 mls @ 125 mls/hr IV .Q8H [facility] Last Admin: 03/15/17 08:13 Dose: Not Given Ciprofloxacin (Cipro 400mg/200ml Dsw) 400 mg in 200 mls @ 133 mls/hr IVPB Q12H [facility] Last Admin: 03/15/17 01:41 Dose: 133 mls/hr Ondansetron HCl (Zofran Inj) 4 mg IVP Q6 PRN PRN Reason: Nausea/Vomiting Pantoprazole Sodium (Protonix Inj) 40 mg IVP DAILY [facility] Last Admin: 03/15/17 10:23 Dose: 40 mg - Labs Labs: 03/15/17 08:04 03/15/17 08:04 PT 13.1 SECONDS (9.7-12.2) H 03/15/17 08:04 INR 1.2 03/15/17 08:04 APTT 26 SECONDS (21-34) 03/15/17 08:04 - Constitutional Appears: Non-toxic, No Acute Distress - Head Exam Head Exam: ATRAUMATIC, NORMAL INSPECTION, NORMOCEPHALIC - Eye Exam Eye Exam: EOMI, Normal appearance - ENT Exam ENT Exam: Mucous Membranes Moist, Normal Exam - Neck Exam Neck Exam: Full ROM, Normal Inspection - Respiratory Exam Respiratory Exam: NORMAL BREATHING PATTERN - Cardiovascular Exam Cardiovascular Exam: REGULAR RHYTHM, +S1, +S2 - GI/Abdominal Exam GI & Abdominal Exam: Soft. absent: Distended (obese), Firm, Guarding, Rigid, Tenderness, Rebound - Extremities Exam Extremities Exam: Normal Inspection. absent: Pedal Edema - Neurological Exam Neurological Exam: Alert, Awake, CN II-XII Intact, Oriented x3 - Psychiatric Exam Psychiatric exam: Normal Affect, Normal Mood - Skin Skin Exam: Dry, Intact, Normal Color, Warm Assessment and Plan - Assessment and Plan (Free Text) Assessment: 42F w/cholecystitis and transaminitis Plan: NPO Pain control Anti-emetic HIDA scan positive T bili down trending (2.2 from 5.1) Case and Dr. Renetta Reagan Plan for OR tomorrow- laparoscopic cholecystectomy Will consent the pt NANDA attending Edith, PGY-1
[2017-03-15] MEDS: Potassium Chl 20 mEq in D5-NS 1,000 ML IV SCH ×2 (13:32→21:26)
[2017-03-16] MEDS: Ciprofloxacin 400mg/200ml D5W 400 MG/200 ML BAG IVPB SCH ×4 (01:30→15:14)
[2017-03-16] MEDS: metroNIDAZOLE IV 500 mg/100 ml 500 MG/100 ML BAG IVPB SCH ×3 (05:26→21:20)
[2017-03-16 08:04] LABS: INR 1.2; PROTHROMBIN TIME 13.5 SECONDS (9.7-12.2)
[2017-03-16 08:06] LABS: BASO % 0.7 % (0.0-2.0); EOS # 0.1 K/uL (0.0-0.7); EOS % 2.2 % (0.0-4.0); HEMOGLOBIN 12.6 g/dL (11.0-16.0); LYMPH # 1.8 K/uL (1.0-4.3); LYMPH % 27.7 % (20.0-40.0); MEAN CELL VOLUME 94.5 fL (81.0-99.0); MEAN CORPUSCULAR HEMOGLOBIN 31.4 pg (27.0-31.0); MEAN CORPUSCULAR HGB CONC 33.2 g/dL (33.0-37.0); MEAN PLATELET VOLUME 7.9 fL (7.2-11.7); MONO # 0.4 K/uL (0.0-0.8); NEUT # 4.2 K/uL (1.8-7.0); NEUT % 63.4 % (50.0-75.0); NRBC % 0.2 % (0.0-2.0); RED CELL DISTRIBUTION WIDTH 13.5 % (11.5-14.5); WHITE BLOOD COUNT 6.6 K/uL (4.8-10.8)
[2017-03-16 08:38] LABS: ALB/GLOB RATIO 1.1 (1.0-2.1); ALBUMIN 3.6 g/dL (3.5-5.0); ALT/SGPT 594 U/L (9-52); AST/SGOT 152 U/L (14-36); BLOOD UREA NITROGEN 5 mg/dL (7-17); CALCIUM 8.1 mg/dl (8.6-10.4); GFR AFRICAN-AMERICAN > 60; GFR NON-AFRICAN AMERICAN > 60; MAGNESIUM 1.7 mg/dL (1.6-2.3)
[2017-03-16] MEDS: Potassium Chl 20 mEq in D5-NS 1,000 ML IV SCH ×2 (13:54→20:03)
[2017-03-16] MEDS ORDERED: Propofol 10 mg/ml Inj (20 ML) ONE ×2 (14:35)
[2017-03-16] MEDS ORDERED: Midazolam 2 MG/2 ML VIAL ONE (14:35)
[2017-03-16] MEDS ORDERED: Rocuronium 10 mg/ml (5 ml) ONE (14:38)
[2017-03-16] MEDS ORDERED: Lactated Ringer's 1,000 ML IV ONE ×3 (14:40→19:00)
[2017-03-16] MEDS ORDERED: Lidocaine 1% Inj (20ml) ONE (15:00)
[2017-03-16] MEDS ORDERED: Bupivacaine HCl 0.5% PF (10 ml) Inj ONE (15:00)
[2017-03-16] MEDS ORDERED: Neostigmine Methylsulfate 3mg/3ml Syringe IV ONE (15:56)
[2017-03-16] MEDS ORDERED: HYDROmorphone 0.5 mg/0.5 ml ISec IVP PRN (16:38)
--- NOTE | 2017-03-16 16:38 | PCM.SURG1 ---
Surgeon's Initial Post Op Note - Surgeon's Notes Surgeon: Dr. Jackson Settlement Technician: PGY4, Brittney PGY1, Rodrick OMS III Type of Anesthesia: General Endo Pre-Operative Diagnosis: Acute cholecystitis Operative Findings: see operative report Post-Operative Diagnosis: Acute cholecystitis Operation Performed: Laparoscopic Cholecystectomy Specimen/Specimens Removed: Gallbladder Estimated Blood Loss: EBL {In ML}: 10 Blood Products Given: N/A Drains Used: No Drains Post-Op Condition: Good Date of Surgery/Procedure: 03/16/17 Time of Surgery/Procedure: 15:00
[2017-03-16] MEDS ORDERED: Ophthalmic Irrigation, Soln OU ONE ×2 (19:04→19:15)
[2017-03-16] MEDS ORDERED: Tobramycin 0.3% OPHT SOLN OU STA ×2 (19:05→19:16)
[2017-03-16 20:05] VITALS: RESP 20
--- NOTE | 2017-03-16 20:23 | CP.PCM.PN ---
<Nickolas Borges - Last Filed: 03/16/17 20:17> Subjective - Date & Time of Evaluation Date of Evaluation: 03/16/17 Time of Evaluation: 07:45 - Subjective Subjective: Patient seen and examined. No overnight events reported. Denies any fever or current abdominal pain. She does complain of diarrhea. Denies any nausea or vomiting. Objective - Vital Signs/Intake and Output Vital Signs (last 24 hours): Temp Pulse Resp BP Pulse Ox 99 F 78 20 115/74 100 03/16/17 18:35 03/16/17 18:35 03/16/17 18:35 03/16/17 18:35 03/16/17 18:35 Intake and Output: 03/16/17 03/17/17 18:59 06:59 Intake Total 975 Output Total 10 Balance 975 -10 - Medications Medications: Current Medications Metronidazole (Flagyl) 500 mg in 100 mls @ 100 mls/hr IVPB Q8 [facility] Last Admin: 03/16/17 13:52 Dose: 100 mls/hr Ciprofloxacin (Cipro 400mg/200ml Dsw) 400 mg in 200 mls @ 133 mls/hr IVPB Q12H [facility] Last Admin: 03/16/17 15:08 Dose: Not Given Potassium Chloride/Dextrose/Sod Cl (Potassium Chl 20 Meq In D5-Ns) 1,000 mls @ 125 mls/hr IV .Q8H [facility] Last Admin: 03/16/17 20:03 Dose: 125 mls/hr Ketorolac Tromethamine (Toradol) 15 mg IVP Q6 PRN PRN Reason: Pain, moderate (4-7) Last Admin: 03/16/17 20:01 Dose: 15 mg Ketorolac Tromethamine (Toradol) 30 mg IVP Q6 PRN PRN Reason: Pain, severe (8-10) Ondansetron HCl (Zofran Inj) 4 mg IVP Q6 PRN PRN Reason: Nausea/Vomiting Last Admin: 03/16/17 11:52 Dose: 4 mg Pantoprazole Sodium (Protonix Inj) 40 mg IVP DAILY [facility] Last Admin: 03/16/17 09:47 Dose: 40 mg - Labs Labs: 03/16/17 07:41 03/16/17 07:41 PT 13.5 SECONDS (9.7-12.2) H 03/16/17 07:41 INR 1.2 03/16/17 07:41 APTT 26 SECONDS (21-34) 03/15/17 08:04 - Additional Findings Additional findings: - Constitutional Appears: Non-toxic, No Acute Distress - Head Exam Head Exam: NORMAL INSPECTION - Eye Exam Eye Exam: EOMI, PERRL - ENT Exam ENT Exam: Mucous Membranes Moist - Respiratory Exam Respiratory Exam: Clear to Ausculation Bilateral, NORMAL BREATHING PATTERN. absent: Rales, Rhonchi, Wheezes - Cardiovascular Exam Cardiovascular Exam: REGULAR RHYTHM, +S1, +S2 - GI/Abdominal Exam GI & Abdominal Exam: Soft, Normal Bowel Sounds. absent: Distended, Firm, Guarding, Rigid, Tenderness, Rebound - Extremities Exam Extremities Exam: absent: Pedal Edema, Tenderness Additional comments: butterfly tatoo over right lower extremity - Back Exam Back Exam: absent: CVA tenderness (L), CVA tenderness (R) - Neurological Exam Neurological Exam: Alert, Awake, Oriented x3 Neuro motor strength exam: Left Upper Extremity: 5, Right Upper Extremity: 5, Left Lower Extremity: 5, Right Lower Extremity: 5 - Psychiatric Exam Psychiatric exam: Normal Affect, Normal Mood - Skin Skin Exam: Dry, Intact, Normal Color, Warm. absent: Petechiae, Rash Assessment and Plan - Assessment and Plan (Free Text) Plan: (1) Acute cholecystitis General surgery (Dr. Jackson) on consult-->help appreciated Scheduled for surgery today. GI (Dr. Reagan) on consult-->help appreciated Chest Xray (03/14/17): no active disease EKG (03/14/17): normal sinus rhythm Patient is symptomatic of pain and nausea. HIDA (03/14/17): nonvisualization of gallbladder at 3 hours. Findings consistent with acute cholecystitis in appropriate clinical setting. MRCP (03/14/17): gallstones without evidence of acute cholecystitis. Mild distended gallbladder. CBD is normal in caliber and shape. No evidence of choledocholithiasis. No evidence of acute pathology in upper abdomen. Gallbladder US (03/14/17): multiple gallstones and mild gallbladder wall thickening. Prominent intrahepatic biliary ducts. Proximal common bile duct measures 5.7 mm. Mildly echogenic liver suggestive of hepatic steatosis. As per Detsky's Critiera , patient's cardiac risk index is low with class I 6% complications. Surgery and anesthesia to explain risks and benefits respectively if surgery is warranted. Ciprofloxacin 400mg IVPB Q12H (active 03/15/17) Flagyl 500mg IVPB Q8H (active 03/15/17) (2) Transaminitis Liver enzymes down trending HIDA (03/14/17): nonvisualization of gallbladder at 3 hours. Findings consistent with acute cholecystitis in appropriate clinical setting. MRCP (03/14/17): gallstones without evidence of acute cholecystitis. Mild distended gallbladder. CBD is normal in caliber and shape. No evidence of choledocholithiasis. No evidence of acute pathology in upper abdomen. Gallbladder US (03/14/17): multiple gallstones and mild gallbladder wall thickening. Prominent intrahepatic biliary ducts. Proximal common bile duct measures 5.7 mm. Mildly echogenic liver suggestive of hepatic steatosis. Tylenol level: negative Hepatitis panel: negative Status: Acute (3) Obesity Lipid panel: within normal limits HgBA1c WNL @ 5.4 (4) Cholelithiasis HIDA (03/14/17): nonvisualization of gallbladder at 3 hours. Findings consistent with acute cholecystitis in appropriate clinical setting. MRCP (03/14/17): gallstones without evidence of acute cholecystitis. Mild distended gallbladder. CBD is normal in caliber and shape. No evidence of choledocholithiasis. No evidence of acute pathology in upper abdomen. Gallbladder US (03/14/17): multiple gallstones and mild gallbladder wall thickening. Prominent intrahepatic biliary ducts. Proximal common bile duct measures 5.7 mm. Mildly echogenic liver suggestive of hepatic steatosis. General surgery (Dr. Jackson) on board-->help appreciated GI (Dr. Reagan) on board-->help appreciated Discussed case with surgery, would like input from GI in regards to additional workup needed. Status: Acute (5) Prophylactic measure Restart Lovenox 40mg subqdaily c/w protonix 40mg IVq daily Toradol for pain control 15 Q6 for moderate pain and 30 Q6 for severe pain. Zofran 4mg IVP Q 6H PRN nausea/vomitting NS 125 cc/hr Status: Acute Patient discussed with Attending Nickolas Borges - PGY1 <Martin Mensah - Last Filed: 03/16/17 21:20> Objective - Vital Signs/Intake and Output Vital Signs (last 24 hours): Temp Pulse Resp BP Pulse Ox 99 F 78 20 115/74 100 03/16/17 18:35 03/16/17 18:35 03/16/17 18:35 03/16/17 18:35 03/16/17 18:35 Intake and Output: 03/16/17 03/17/17 18:59 06:59 Intake Total 975 Output Total 10 Balance 975 -10 - Medications Medications: Current Medications Metronidazole (Flagyl) 500 mg in 100 mls @ 100 mls/hr IVPB Q8 [facility] Last Admin: 03/16/17 13:52 Dose: 100 mls/hr Ciprofloxacin (Cipro 400mg/200ml Dsw) 400 mg in 200 mls @ 133 mls/hr IVPB Q12H [facility] Last Admin: 03/16/17 15:08 Dose: Not Given Potassium Chloride/Dextrose/Sod Cl (Potassium Chl 20 Meq In D5-Ns) 1,000 mls @ 125 mls/hr IV .Q8H [facility] Last Admin: 03/16/17 20:03 Dose: 125 mls/hr Ketorolac Tromethamine (Toradol) 15 mg IVP Q6 PRN PRN Reason: Pain, moderate (4-7) Last Admin: 03/16/17 20:01 Dose: 15 mg Ketorolac Tromethamine (Toradol) 30 mg IVP Q6 PRN PRN Reason: Pain, severe (8-10) Ondansetron HCl (Zofran Inj) 4 mg IVP Q6 PRN PRN Reason: Nausea/Vomiting Last Admin: 03/16/17 11:52 Dose: 4 mg Pantoprazole Sodium (Protonix Inj) 40 mg IVP DAILY [facility] Last Admin: 03/16/17 09:47 Dose: 40 mg - Labs Labs: 03/16/17 07:41 03/16/17 07:41 PT 13.5 SECONDS (9.7-12.2) H 03/16/17 07:41 INR 1.2 03/16/17 07:41 APTT 26 SECONDS (21-34) 03/15/17 08:04 Attending/Attestation - Attestation I have personally seen and examined this patient.: Yes I have fully participated in the care of the patient.: Yes I have reviewed all pertinent clinical information, including history, physical exam and plan: Yes Notes (Text): 03/16/17 21:16 Patient was seen and examined at 11:30 AM 03/16/17 Bed 353 B. Exam, assessment and plan were thoroughly gone over with the resident. Also on ROS: Some nonbloody nonmucoid diarrhea this morning Some nause this morning but NO vomiting Assessments: 1). Biliary Colic with (+) HIDA: I spoke with Surgeon Dr. Jackson and patient is for Lap Dalila today. 2). Elevated LFTs: Hepatitis Panel is negative. F/U HIV 1 and 2 Dilaudid was discontinued and patient was started on Toradol 15 mg or 30 mg IV Q6H PRN moderate to severe pain, respectively Martin Mensah D.O.
[2017-03-17] MEDS: Ciprofloxacin 400mg/200ml D5W 400 MG/200 ML BAG IVPB SCH ×2 (02:00→15:30)
[2017-03-17] MEDS: metroNIDAZOLE IV 500 mg/100 ml 500 MG/100 ML BAG IVPB SCH ×3 (05:55→22:08)
--- NOTE | 2017-03-17 09:26 | CP.PCM.PN ---
Subjective - Date & Time of Evaluation Date of Evaluation: 03/17/17 Time of Evaluation: 09:10 - Subjective Subjective: medical Attending note: patient seen and examined at bedside. patient reports abdominal pain is about 8/ 10 on pain scale. Patient reports she received pain medication prior to my arrival. patient reports strong appetite would like [place]. Patient has not had flatus post procedure. Patient reports she has urinated post procedure. patient reports mild nauseousness. Patient is standing upright. Diet placed on liquid to help to minimize abdominal pain. explained to patient that to take pain medication at 7-8 on pain scale. Objective - Vital Signs/Intake and Output Vital Signs (last 24 hours): Temp Pulse Resp BP Pulse Ox 99 F 88 20 114/76 97 03/17/17 08:09 03/17/17 08:09 03/17/17 08:09 03/17/17 08:09 03/17/17 08:09 Intake and Output: 03/17/17 03/17/17 06:59 18:59 Intake Total 2675 Output Total 325 Balance 2350 - Medications Medications: Current Medications Metronidazole (Flagyl) 500 mg in 100 mls @ 100 mls/hr IVPB Q8 [facility] Last Admin: 03/17/17 05:55 Dose: 100 mls/hr Ciprofloxacin (Cipro 400mg/200ml Dsw) 400 mg in 200 mls @ 133 mls/hr IVPB Q12H [facility] Last Admin: 03/17/17 02:00 Dose: 133 mls/hr Potassium Chloride/Dextrose/Sod Cl (Potassium Chl 20 Meq In D5-Ns) 1,000 mls @ 125 mls/hr IV .Q8H [facility] Last Admin: 03/16/17 20:03 Dose: 125 mls/hr Ketorolac Tromethamine (Toradol) 15 mg IVP Q6 PRN PRN Reason: Pain, moderate (4-7) Last Admin: 03/16/17 20:01 Dose: 15 mg Ketorolac Tromethamine (Toradol) 30 mg IVP Q6 PRN PRN Reason: Pain, severe (8-10) Last Admin: 03/17/17 02:00 Dose: 30 mg Ondansetron HCl (Zofran Inj) 4 mg IVP Q6 PRN PRN Reason: Nausea/Vomiting Last Admin: 03/16/17 11:52 Dose: 4 mg Pantoprazole Sodium (Protonix Inj) 40 mg IVP DAILY [facility] Last Admin: 03/16/17 09:47 Dose: 40 mg - Labs Labs: 03/16/17 07:41 03/16/17 07:41 PT 13.5 SECONDS (9.7-12.2) H 03/16/17 07:41 INR 1.2 03/16/17 07:41 APTT 26 SECONDS (21-34) 03/15/17 08:04 - Constitutional Appears: Non-toxic, No Acute Distress - Head Exam Head Exam: NORMAL INSPECTION - Eye Exam Eye Exam: EOMI - ENT Exam ENT Exam: Mucous Membranes Moist - Respiratory Exam Respiratory Exam: Clear to Ausculation Bilateral, NORMAL BREATHING PATTERN. absent: Rales, Rhonchi, Wheezes - Cardiovascular Exam Cardiovascular Exam: REGULAR RHYTHM, +S1, +S2 - GI/Abdominal Exam GI & Abdominal Exam: Distended (habitus), Soft, Tenderness (mild tenderness over right upper quadrant), Hypoactive Bowel Sounds. absent: Firm, Rigid, Rebound - Extremities Exam Extremities Exam: Normal Capillary Refill. absent: Pedal Edema, Tenderness - Neurological Exam Neurological Exam: Alert, Awake, Oriented x3 - Psychiatric Exam Psychiatric exam: Normal Affect, Normal Mood Assessment and Plan (1) Acute cholecystitis Status: Acute (2) Transaminitis Status: Acute (3) Obesity Status: Chronic (4) Cholelithiasis Status: Acute (5) Prophylactic measure Status: Acute - Assessment and Plan (Free Text) Assessment: (1) Acute cholecystitis Assessment & Plan: General surgery (Dr. Jackson) on consult-->help appreciated GI (Dr. Reagan) on consult-->help appreciated Chest Xray (03/14/17): no active disease EKG (03/14/17): normal sinus rhythm Patient is symptomatic of pain and nausea. HIDA (03/14/17): nonvisualization of gallbladder at 3 hours. Findings consistent with acute cholecystitis in appropriate clinical setting. MRCP (03/14/17): gallstones without evidence of acute cholecystitis. Mild distended gallbladder. CBD is normal in caliber and shape. No evidence of choledocholithiasis. No evidence of acute pathology in upper abdomen. Gallbladder US (03/14/17): multiple gallstones and mild gallbladder wall thickening. Prominent intrahepatic biliary ducts. Proximal common bile duct measures 5.7 mm. Mildly echogenic liver suggestive of hepatic steatosis. As per Detsky's Critiera , patient's cardiac risk index is low with class I 6% complications. Surgery and anesthesia to explain risks and benefits respectively if surgery is warranted. Discussed case with Dr. Jackson (general surgery), he would like input from GI to see if additional workup is needed by GI given elevated direct bilirubin yesterday evening; discussed blood work results from today. Will f/u GI when they start their rounds. Ciprofloxacin 400mg IVPB Q12H (active 03/15/17) Flagyl 500mg IVPB Q8H (active 03/15/17) Status: Acute (2) Transaminitis Assessment & Plan: Liver enzymes down trending HIDA (03/14/17): nonvisualization of gallbladder at 3 hours. Findings consistent with acute cholecystitis in appropriate clinical setting. MRCP (03/14/17): gallstones without evidence of acute cholecystitis. Mild distended gallbladder. CBD is normal in caliber and shape. No evidence of choledocholithiasis. No evidence of acute pathology in upper abdomen. Gallbladder US (03/14/17): multiple gallstones and mild gallbladder wall thickening. Prominent intrahepatic biliary ducts. Proximal common bile duct measures 5.7 mm. Mildly echogenic liver suggestive of hepatic steatosis. Tylenol level: negative Hepatitis panel: negative Status: Acute (3) Obesity Assessment & Plan: Lipid panel: within normal limits pending [id number] Status: Chronic (4) Cholelithiasis Assessment & Plan: HIDA (03/14/17): nonvisualization of gallbladder at 3 hours. Findings consistent with acute cholecystitis in appropriate clinical setting. MRCP (03/14/17): gallstones without evidence of acute cholecystitis. Mild distended gallbladder. CBD is normal in caliber and shape. No evidence of choledocholithiasis. No evidence of acute pathology in upper abdomen. Gallbladder US (03/14/17): multiple gallstones and mild gallbladder wall thickening. Prominent intrahepatic biliary ducts. Proximal common bile duct measures 5.7 mm. Mildly echogenic liver suggestive of hepatic steatosis. General surgery (Dr. Jackson) on board-->help appreciated GI (Dr. Reagan) on board-->help appreciated Discussed case with surgery, would like input from GI in regards to additional workup needed. Status: Acute (5) Prophylactic measure Assessment & Plan: c/w Lovenox 40mg subqdaily * No plans for surgery today; general surgery awaiting input from GI if additional workup is needed c/w protonix 40mg IVq daily Dilaudid 0.5mg IVP Q3PRN pain moderate Zofran 4mg IVP Q 6H PRN nausea/vomitting NS 125 cc/hr Status: Acute Attending/Attestation - Attestation I have personally seen and examined this patient.: Yes I have fully participated in the care of the patient.: Yes I have reviewed all pertinent clinical information, including history, physical exam and plan: Yes Notes (Text): (1) Acute cholecystitis Assessment & Plan: General surgery (Dr. Jackson) on consult-->help appreciated GI (Dr. Reagan) on consult-->help appreciated Chest Xray (03/14/17): no active disease EKG (03/14/17): normal sinus rhythm HIDA (03/14/17): nonvisualization of gallbladder at 3 hours. Findings consistent with acute cholecystitis in appropriate clinical setting. MRCP (03/14/17): gallstones without evidence of acute cholecystitis. Mild distended gallbladder. CBD is normal in caliber and shape. No evidence of choledocholithiasis. No evidence of acute pathology in upper abdomen. Gallbladder US (03/14/17): multiple gallstones and mild gallbladder wall thickening. Prominent intrahepatic biliary ducts. Proximal common bile duct measures 5.7 mm. Mildly echogenic liver suggestive of hepatic steatosis. As per Detsky's Critiera , patient's cardiac risk index is low with class I 6% complications. Surgery and anesthesia to explain risks and benefits respectively if surgery is warranted. Ciprofloxacin 400mg IVPB Q12H (active 03/15/17) Flagyl 500mg IVPB Q8H (active 03/15/17) patient is postoperative day one from [facility]. patient has not had flatus or bowel movement post procedure. patient has strong appetite. lower diet to liquid. patient reports abdominal pain, will reassess pain post effectiveness of pain medication. * will need to f/u with general surgery when patient is stable for discharge from their perspective and when patient is appropriate to go back to work. 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 Status: Acute (2) Transaminitis Assessment & Plan: pending blood work for today HIDA (03/14/17): nonvisualization of gallbladder at 3 hours. Findings consistent with acute cholecystitis in appropriate clinical setting. MRCP (03/14/17): gallstones without evidence of acute cholecystitis. Mild distended gallbladder. CBD is normal in caliber and shape. No evidence of choledocholithiasis. No evidence of acute pathology in upper abdomen. Gallbladder US (03/14/17): multiple gallstones and mild gallbladder wall thickening. Prominent intrahepatic biliary ducts. Proximal common bile duct measures 5.7 mm. Mildly echogenic liver suggestive of hepatic steatosis. Tylenol level: negative Hepatitis panel: negative Status: Acute (3) Obesity Assessment & Plan: Lipid panel: within normal limits [id number]: 5.4 Status: Chronic (4) Cholelithiasis Assessment & Plan: HIDA (03/14/17): nonvisualization of gallbladder at 3 hours. Findings consistent with acute cholecystitis in appropriate clinical setting. aea MRCP (03/14/17): gallstones without evidence of acute cholecystitis. Mild distended gallbladder. CBD is normal in caliber and shape. No evidence of choledocholithiasis. No evidence of acute pathology in upper abdomen. Gallbladder US (03/14/17): multiple gallstones and mild gallbladder wall thickening. Prominent intrahepatic biliary ducts. Proximal common bile duct measures 5.7 mm. Mildly echogenic liver suggestive of hepatic steatosis. General surgery (Dr. Jackson) on board-->help appreciated GI (Dr. Reagan) on board-->help appreciated Discussed case with surgery, would like input from GI in regards to additional workup needed prior to OR. Status: Acute (5) Prophylactic measure Assessment & Plan: Anticoagulation on hold-->will need to check with surgery when to restart anticoagulation c/w protonix 40mg IVq daily Toradol 30 IV Q 6PRN Toradol 15mg IV Q 6PRN Zofran 4mg IVP Q 6H PRN nausea/vomitting D51/2 NS 125cc/hr Status: Acute Disposition: * awaiting blood work results for today * will need to f/u with general surgery when patient is stable for discharge from their perspective and when patient is appropriate to go back to work. 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
[2017-03-17] MEDS: Potassium Chl 20 mEq in D5-NS 1,000 ML IV SCH ×2 (09:48→21:00)
[2017-03-17] MEDS ORDERED: Pantoprazole 40 mg EC Tab PO SCH (10:00)
[2017-03-17 14:04] LABS: BASO # 0.1 K/uL (0.0-0.2); BASO % 1.1 % (0.0-2.0); EOS # 0.1 K/uL (0.0-0.7); EOS % 1.7 % (0.0-4.0); HEMOGLOBIN 11.4 g/dL (11.0-16.0); LYMPH # 2.1 K/uL (1.0-4.3); MEAN CELL VOLUME 94.9 fL (81.0-99.0); MEAN CORPUSCULAR HEMOGLOBIN 31.7 pg (27.0-31.0); MEAN CORPUSCULAR HGB CONC 33.4 g/dL (33.0-37.0); MONO # 0.6 K/uL (0.0-0.8); NEUT # 5.2 K/uL (1.8-7.0); NEUT % 64.2 % (50.0-75.0); RBC 3.59 Mil/uL (3.80-5.20); RED CELL DISTRIBUTION WIDTH 13.4 % (11.5-14.5); WHITE BLOOD COUNT 8.1 K/uL (4.8-10.8)
--- NOTE | 2017-03-17 14:04 | CP.PCM.PN ---
Subjective - Date & Time of Evaluation Date of Evaluation: 03/17/17 Time of Evaluation: 08:00 - Subjective Subjective: General Surgery Note for Dr. Jackson Patient seen and examined at bedside. No acute event overnight. Patient is s/p laparoscopic cholecystectomy POD#1. Patient tolerating diet and passing gas. She is ambulating and urinating without difficulty. Patient has mild tenderness at surgical sites. Objective - Vital Signs/Intake and Output Vital Signs (last 24 hours): Temp Pulse Resp BP Pulse Ox 99 F 88 20 114/76 97 03/17/17 08:09 03/17/17 08:09 03/17/17 08:09 03/17/17 08:09 03/17/17 08:09 Intake and Output: 03/17/17 03/17/17 06:59 18:59 Intake Total 2675 Output Total 325 Balance 2350 - Medications Medications: Current Medications Metronidazole (Flagyl) 500 mg in 100 mls @ 100 mls/hr IVPB Q8 [facility] Last Admin: 03/17/17 13:55 Dose: 100 mls/hr Ciprofloxacin (Cipro 400mg/200ml Dsw) 400 mg in 200 mls @ 133 mls/hr IVPB Q12H [facility] Last Admin: 03/17/17 02:00 Dose: 133 mls/hr Potassium Chloride/Dextrose/Sod Cl (Potassium Chl 20 Meq In D5-Ns) 1,000 mls @ 125 mls/hr IV .Q8H [facility] Last Admin: 03/17/17 09:48 Dose: 125 mls/hr Ketorolac Tromethamine (Toradol) 15 mg IVP Q6 PRN PRN Reason: Pain, moderate (4-7) Last Admin: 03/16/17 20:01 Dose: 15 mg Ketorolac Tromethamine (Toradol) 30 mg IVP Q6 PRN PRN Reason: Pain, severe (8-10) Last Admin: 03/17/17 09:45 Dose: 30 mg Ondansetron HCl (Zofran Inj) 4 mg IVP Q6 PRN PRN Reason: Nausea/Vomiting Last Admin: 03/16/17 11:52 Dose: 4 mg Pantoprazole Sodium (Protonix Ec Tab) 40 mg PO DAILY [facility] Last Admin: 03/17/17 09:44 Dose: 40 mg - Labs Labs: 03/16/17 07:41 03/16/17 07:41 PT 13.5 SECONDS (9.7-12.2) H 03/16/17 07:41 INR 1.2 03/16/17 07:41 APTT 26 SECONDS (21-34) 03/15/17 08:04 - Constitutional Appears: No Acute Distress - Head Exam Head Exam: ATRAUMATIC, NORMOCEPHALIC - Eye Exam Eye Exam: Normal appearance - ENT Exam ENT Exam: Mucous Membranes Moist - Respiratory Exam Respiratory Exam: NORMAL BREATHING PATTERN - Cardiovascular Exam Cardiovascular Exam: REGULAR RHYTHM - GI/Abdominal Exam GI & Abdominal Exam: Soft, Tenderness (domenica-incisional), Normal Bowel Sounds Additional comments: surgical site clean dry and intact marky drain removed - Extremities Exam Extremities Exam: Normal Capillary Refill - Neurological Exam Neurological Exam: Alert, Awake, Oriented x3 - Psychiatric Exam Psychiatric exam: Normal Affect, Normal Mood - Skin Skin Exam: Dry, Intact, Normal Color, Warm Assessment and Plan - Assessment and Plan (Free Text) Plan: 42 F s/p laparoscopic cholecystectomy POD#1 -Patient clear for discharge from surgical standpoint -Cipro/flagyl for 5 days -Analgesics PRN -Follow up with Dr. Jackson as outpatient within 1-2 weeks -Discussed with Dr. Renetta Lugo PGY1
[2017-03-17 14:19] LABS: ALB/GLOB RATIO 1.1 (1.0-2.1); ALBUMIN 3.3 g/dL (3.5-5.0); ALT/SGPT 415 U/L (9-52); AST/SGOT 118 U/L (14-36); BLOOD UREA NITROGEN 4 mg/dL (7-17); GFR AFRICAN-AMERICAN > 60; GFR NON-AFRICAN AMERICAN > 60
--- NOTE | 2017-03-17 15:37 | CP.PCM.DIS ---
<Nickolas Borges - Last Filed: 03/17/17 19:50> Provider - Provider Date of Admission: 03/14/17 11:16 Attending physician: Martin Mensah MD Consults: GI - Dr. Reagan Gen. Surg - Dr. Jackson Time Spent in preparation of Discharge (in minutes): 45 Hospital Course - Lab Results Lab Results: Most Recent Lab Values WBC 8.1 K/uL (4.8-10.8) 03/17/17 13:58 RBC 3.59 Mil/uL (3.80-5.20) L 03/17/17 13:58 Hgb 11.4 g/dL (11.0-16.0) 03/17/17 13:58 Hct 34.1 % (34.0-47.0) 03/17/17 13:58 MCV 94.9 fL (81.0-99.0) 03/17/17 13:58 MCH 31.7 pg (27.0-31.0) H 03/17/17 13:58 MCHC 33.4 g/dL (33.0-37.0) 03/17/17 13:58 RDW 13.4 % (11.5-14.5) 03/17/17 13:58 Plt Count 247 K/uL (130-400) 03/17/17 13:58 MPV 8.0 fL (7.2-11.7) 03/17/17 13:58 Neut % (Auto) 64.2 % (50.0-75.0) 03/17/17 13:58 Lymph % (Auto) 26.0 % (20.0-40.0) 03/17/17 13:58 Col[place]itt % (Auto) 7.0 % (0.0-10.0) 03/17/17 13:58 Eos % (Auto) 1.7 % (0.0-4.0) 03/17/17 13:58 Baso % (Auto) 1.1 % (0.0-2.0) 03/17/17 13:58 Neut # 5.2 K/uL (1.8-7.0) 03/17/17 13:58 Lymph # 2.1 K/uL (1.0-4.3) 03/17/17 13:58 Col[place]itt # 0.6 K/uL (0.0-0.8) 03/17/17 13:58 Eos # 0.1 K/uL (0.0-0.7) 03/17/17 13:58 Baso # 0.1 K/uL (0.0-0.2) 03/17/17 13:58 PT 13.5 SECONDS (9.7-12.2) H 03/16/17 07:41 INR 1.2 03/16/17 07:41 APTT 26 SECONDS (21-34) 03/15/17 08:04 Sodium 135 mmol/L (132-148) 03/17/17 13:58 Potassium 3.8 mmol/L (3.6-5.2) 03/17/17 13:58 Chloride 107 mmol/L (98-107) 03/17/17 13:58 Carbon Dioxide 23 mmol/L (22-30) 03/17/17 13:58 Anion Gap 10 (10-20) 03/17/17 13:58 BUN 4 mg/dL (7-17) L 03/17/17 13:58 Creatinine 0.7 mg/dL (0.7-1.2) 03/17/17 13:58 Est GFR ( Amer) > 60 03/17/17 13:58 Est GFR (Non-Af Amer) > 60 03/17/17 13:58 Random Glucose 108 mg/dL (65-105) H 03/17/17 13:58 Hemoglobin A1c 5.4 % (4.2-6.5) 03/15/17 08:04 Calcium 8.0 mg/dl (8.6-10.4) L 03/17/17 13:58 Phosphorus 2.7 mg/dL (2.5-4.5) 03/16/17 07:41 Magnesium 1.7 mg/dL (1.6-2.3) 03/16/17 07:41 Total Bilirubin 0.6 mg/dL (0.2-1.3) 03/17/17 13:58 Direct Bilirubin 4.7 mg/dL (0.0-0.4) H 03/14/17 20:29 AST 118 U/L (14-36) H D 03/17/17 13:58 ALT 415 U/L (9-52) H D 03/17/17 13:58 Alkaline Phosphatase 90 U/L (38-126) 03/17/17 13:58 Total Protein 6.4 g/dL (6.3-8.3) 03/17/17 13:58 Albumin 3.3 g/dL (3.5-5.0) L 03/17/17 13:58 Globulin 3.0 gm/dL (2.2-3.9) 03/17/17 13:58 Albumin/Globulin Ratio 1.1 (1.0-2.1) 03/17/17 13:58 Triglycerides 50 mg/dL (0-149) 03/15/17 08:04 Cholesterol 196 mg/dL (0-199) 03/15/17 08:04 LDL Cholesterol Direct 93 mg/dL (0-129) 03/15/17 08:04 HDL Cholesterol 54 mg/dL (30-70) 03/15/17 08:04 Lipase 175 U/L (23-300) 03/14/17 09:38 TSH 3rd Generation 0.90 mIU/L (0.46-4.68) 03/15/17 08:04 Urine Color Toshia (YELLOW) 03/14/17 09:38 Urine Clarity Clear (Clear) 03/14/17 09:38 Urine pH 5.0 (5.0-8.0) 03/14/17 09:38 Ur Specific Tynan 1.015 (1.003-1.030) 03/14/17 09:38 Urine Protein Negative mg/dL (NEGATIVE) 03/14/17 09:38 Urine Glucose (UA) Normal mg/dL (Normal) 03/14/17 09:38 Urine Ketones Negative mg/dL (NEGATIVE) 03/14/17 09:38 Urine Blood 1+ (NEGATIVE) H 03/14/17 09:38 Urine Nitrate Negative (NEGATIVE) 03/14/17 09:38 Urine Bilirubin Negative (NEGATIVE) 03/14/17 09:38 Urine Urobilinogen 4.0 mg/dL (0.2-1.0) H 03/14/17 09:38 Ur Leukocyte Esterase Neg Isabell/uL (Negative) 03/14/17 09:38 Urine WBC (Auto) 1 /hpf (0-5) 03/14/17 09:38 Urine RBC (Auto) 4 /hpf (0-3) H 03/14/17 09:38 Ur Squamous Epith Cells 4 /hpf (0-5) 03/14/17 09:38 Urine HCG, Qual Negative (NEGATIVE) 03/16/17 08:40 Acetaminophen < 10.0 ug/mL (10.0-30.0) L 03/14/17 15:56 FÉLIX 6 Profile Negative (NEGATIVE) 03/15/17 08:04 Anti-Mitochondrial Ab Negative (Negative) 03/15/17 08:04 Smooth Muscle Ab Titer TEST NOT PERFORMED 03/15/17 08:04 Anti-Smooth Muscle Ab Negative (Negative) 03/15/17 08:04 EBV Capsid Ag IgG Ab 142.00 U/mL H 03/15/17 08:04 EBV Capsid Ag IgM Ab <36.00 U/mL 03/15/17 08:04 EBV Nuclear Antigen Ab 159.00 U/mL H 03/15/17 08:04 EBV Interpretation See note 03/15/17 08:04 Hepatitis A IgM Ab Negative (NEGATIVE) 03/14/17 13:24 Hep Bs Antigen Negative (NEGATIVE) 03/14/17 13:24 Hep B Core IgM Ab Negative (NEGATIVE) 03/14/17 13:24 Hepatitis C Antibody Negative (NEGATIVE) 03/14/17 13:24 HIV 1&2 Antibody Screen Negative (NEGATIVE) 03/16/17 19:45 - Hospital Course Hospital Course: Patient is a 42 year old female with no significant medical history admitted for evaluation and treatment of Colicky Abdominal Pain. Ultrasound showed gallstones, MRCP showed evidence of gallstones without cholecystitis, and normal CBD caliber. HIDA scan was positive. Surgery and GI consulted on the case. Liver Enzymes and Total Bilirubin were elevated. HgBA1c was WNL. Patient was started on IV antibiotics. Patient went for laparoscopic cholecystectomy on the 8th of this month. Patient tolerated surgery well. Patient to be sent home with Ciprofloxacin, Flagyl, and OxyCODONE. She is to follow up with her PMD, and General Surgeon (Dr. Jackson) in 1-2 weeks. Patient is agreeable to plan and medications. Discharge Exam - Head Exam Head Exam: NORMAL INSPECTION - Additional Findings Additional findings: - Constitutional Appears: Non-toxic, No Acute Distress - Head Exam Head Exam: NORMAL INSPECTION - Eye Exam Eye Exam: EOMI - ENT Exam ENT Exam: Mucous Membranes Moist - Respiratory Exam Respiratory Exam: Clear to Ausculation Bilateral, NORMAL BREATHING PATTERN. absent: Rales, Rhonchi, Wheezes - Cardiovascular Exam Cardiovascular Exam: REGULAR RHYTHM, +S1, +S2 - GI/Abdominal Exam GI & Abdominal Exam: Distended (habitus), Soft, Tenderness (mild tenderness over right upper quadrant), Hypoactive Bowel Sounds. absent: Firm, Rigid, Rebound - Extremities Exam Extremities Exam: Normal Capillary Refill. absent: Pedal Edema, Tenderness - Neurological Exam Neurological Exam: Alert, Awake, Oriented x3 - Psychiatric Exam Psychiatric exam: Normal Affect, Normal Mood Discharge Plan - Discharge Medications Prescriptions: Ciprofloxacin [Cipro] 500 mg PO BID #10 tab metroNIDAZOLE [Flagyl] 500 mg PO Q8H #15 tab oxyCODONE [oxyCODONE Immediate Release Tab] 5 mg PO Q6 PRN #10 tab PRN Reason: Pain, Severe (8-10) - Follow Up Plan Condition: GOOD Disposition: HOME/ ROUTINE Instructions: Ciprofloxacin (By mouth), Oxycodone/Acetaminophen (By mouth), Metronidazole (By mouth), Gallstones (DC), Laparoscopic Cholecystectomy (DC) Additional Instructions: Please follow up with your primary medical physician Please follow up with Dr. Jackson (General Surgeon) for a follow up appointment in 1- 2 weeks Please take medications as instructed. Take all antibiotics as instructed to completion. Referrals: Wesley Jackson MD [Staff Provider] - <Kaleigh Nava V - Last Filed: 03/19/17 23:56> Provider - Provider Date of Admission: 03/14/17 11:16 Attending physician: Martin Mensah MD Diagnosis - Discharge Diagnosis (1) Acute cholecystitis Status: Acute (2) Transaminitis Status: Acute (3) Obesity Status: Chronic (4) Cholelithiasis Status: Acute (5) Prophylactic measure Status: Acute Hospital Course - Lab Results Lab Results: Most Recent Lab Values WBC 8.1 K/uL (4.8-10.8) 03/17/17 13:58 RBC 3.59 Mil/uL (3.80-5.20) L 03/17/17 13:58 Hgb 11.4 g/dL (11.0-16.0) 03/17/17 13:58 Hct 34.1 % (34.0-47.0) 03/17/17 13:58 MCV 94.9 fL (81.0-99.0) 03/17/17 13:58 MCH 31.7 pg (27.0-31.0) H 03/17/17 13:58 MCHC 33.4 g/dL (33.0-37.0) 03/17/17 13:58 RDW 13.4 % (11.5-14.5) 03/17/17 13:58 Plt Count 247 K/uL (130-400) 03/17/17 13:58 MPV 8.0 fL (7.2-11.7) 03/17/17 13:58 Neut % (Auto) 64.2 % (50.0-75.0) 03/17/17 13:58 Lymph % (Auto) 26.0 % (20.0-40.0) 03/17/17 13:58 [place] % (Auto) 7.0 % (0.0-10.0) 03/17/17 13:58 Eos % (Auto) 1.7 % (0.0-4.0) 03/17/17 13:58 Baso % (Auto) 1.1 % (0.0-2.0) 03/17/17 13:58 Neut # 5.2 K/uL (1.8-7.0) 03/17/17 13:58 Lymph # 2.1 K/uL (1.0-4.3) 03/17/17 13:58 [place] # 0.6 K/uL (0.0-0.8) 03/17/17 13:58 Eos # 0.1 K/uL (0.0-0.7) 03/17/17 13:58 Baso # 0.1 K/uL (0.0-0.2) 03/17/17 13:58 PT 13.5 SECONDS (9.7-12.2) H 03/16/17 07:41 INR 1.2 03/16/17 07:41 APTT 26 SECONDS (21-34) 03/15/17 08:04 Sodium 135 mmol/L (132-148) 03/17/17 13:58 Potassium 3.8 mmol/L (3.6-5.2) 03/17/17 13:58 Chloride 107 mmol/L (98-107) 03/17/17 13:58 Carbon Dioxide 23 mmol/L (22-30) 03/17/17 13:58 Anion Gap 10 (10-20) 03/17/17 13:58 BUN 4 mg/dL (7-17) L 03/17/17 13:58 Creatinine 0.7 mg/dL (0.7-1.2) 03/17/17 13:58 Est GFR ( Amer) > 60 03/17/17 13:58 Est GFR (Non-Af Amer) > 60 03/17/17 13:58 Random Glucose 108 mg/dL (65-105) H 03/17/17 13:58 Hemoglobin A1c 5.4 % (4.2-6.5) 03/15/17 08:04 Calcium 8.0 mg/dl (8.6-10.4) L 03/17/17 13:58 Phosphorus 2.7 mg/dL (2.5-4.5) 03/16/17 07:41 Magnesium 1.7 mg/dL (1.6-2.3) 03/16/17 07:41 Total Bilirubin 0.6 mg/dL (0.2-1.3) 03/17/17 13:58 Direct Bilirubin 4.7 mg/dL (0.0-0.4) H 03/14/17 20:29 AST 118 U/L (14-36) H D 03/17/17 13:58 ALT 415 U/L (9-52) H D 03/17/17 13:58 Alkaline Phosphatase 90 U/L (38-126) 03/17/17 13:58 Total Protein 6.4 g/dL (6.3-8.3) 03/17/17 13:58 Albumin 3.3 g/dL (3.5-5.0) L 03/17/17 13:58 Globulin 3.0 gm/dL (2.2-3.9) 03/17/17 13:58 Albumin/Globulin Ratio 1.1 (1.0-2.1) 03/17/17 13:58 Triglycerides 50 mg/dL (0-149) 03/15/17 08:04 Cholesterol 196 mg/dL (0-199) 03/15/17 08:04 LDL Cholesterol Direct 93 mg/dL (0-129) 03/15/17 08:04 HDL Cholesterol 54 mg/dL (30-70) 03/15/17 08:04 Lipase 175 U/L (23-300) 03/14/17 09:38 TSH 3rd Generation 0.90 mIU/L (0.46-4.68) 03/15/17 08:04 Urine Color Toshia (YELLOW) 03/14/17 09:38 Urine Clarity Clear (Clear) 03/14/17 09:38 Urine pH 5.0 (5.0-8.0) 03/14/17 09:38 Ur Specific Tynan 1.015 (1.003-1.030) 03/14/17 09:38 Urine Protein Negative mg/dL (NEGATIVE) 03/14/17 09:38 Urine Glucose (UA) Normal mg/dL (Normal) 03/14/17 09:38 Urine Ketones Negative mg/dL (NEGATIVE) 03/14/17 09:38 Urine Blood 1+ (NEGATIVE) H 03/14/17 09:38 Urine Nitrate Negative (NEGATIVE) 03/14/17 09:38 Urine Bilirubin Negative (NEGATIVE) 03/14/17 09:38 Urine Urobilinogen 4.0 mg/dL (0.2-1.0) H 03/14/17 09:38 Ur Leukocyte Esterase Neg Isabell/uL (Negative) 03/14/17 09:38 Urine WBC (Auto) 1 /hpf (0-5) 03/14/17 09:38 Urine RBC (Auto) 4 /hpf (0-3) H 03/14/17 09:38 Ur Squamous Epith Cells 4 /hpf (0-5) 03/14/17 09:38 Urine HCG, Qual Negative (NEGATIVE) 03/16/17 08:40 Acetaminophen < 10.0 ug/mL (10.0-30.0) L 03/14/17 15:56 FÉLIX 6 Profile Negative (NEGATIVE) 03/15/17 08:04 Anti-Mitochondrial Ab Negative (Negative) 03/15/17 08:04 Smooth Muscle Ab Titer TEST NOT PERFORMED 03/15/17 08:04 Anti-Smooth Muscle Ab Negative (Negative) 03/15/17 08:04 Liver/Kid Microsomes Ab <=20.0 U (<=20.0) 03/15/17 08:04 EBV Capsid Ag IgG Ab 142.00 U/mL H 03/15/17 08:04 EBV Capsid Ag IgM Ab <36.00 U/mL 03/15/17 08:04 EBV Nuclear Antigen Ab 159.00 U/mL H 03/15/17 08:04 EBV Interpretation See note 03/15/17 08:04 Hepatitis A IgM Ab Negative (NEGATIVE) 03/14/17 13:24 Hep Bs Antigen Negative (NEGATIVE) 03/14/17 13:24 Hep B Core IgM Ab Negative (NEGATIVE) 03/14/17 13:24 Hepatitis C Antibody Negative (NEGATIVE) 03/14/17 13:24 HCV RNA Qual (TMA) Not detected 03/14/17 15:56 HIV 1&2 Antibody Screen Negative (NEGATIVE) 03/16/17 19:45 Attending/Attestation - Attestation I have personally seen and examined this patient.: Yes I have fully participated in the care of the patient.: Yes I have reviewed all pertinent clinical information, including history, physical exam and plan: Yes Notes (Text): This is late computer entry for 03/17/17. Patient seen, examined and case discussed with day-time resident. Discussed with surgery, patient is stable from their standpoint for discharge. Recommended to complete Ciprofloxocin and Flagyl as outpatient. Patient given Oxycodone 5mg Q6PRN pain (10 tabs/0 refills). Patient advised addictive potential of narcotic medication and advised to use if really needs it for pain control. Patient provided work note to excuse her from time in the hospital. Per surgery, patient to wait 5 days prior to going back to work. Patient advised to follow-up with surgery as outpatient for post-operative follow-up. Patient recommended to follow-up in the clinic since she currently does not have a provider. Patient advised to advance diet as tolerated and refrain from high fat, high cholestrol foods. Diet and exercise modfications. Assessment/Plan (1) Acute cholecystitis--.Stable Assessment & Plan: General surgery (Dr. Jackson) on consult-->help appreciated GI (Dr. Reagan) on consult-->help appreciated Chest Xray (03/14/17): no active disease EKG (03/14/17): normal sinus rhythm HIDA (03/14/17): nonvisualization of gallbladder at 3 hours. Findings consistent with acute cholecystitis in appropriate clinical setting. MRCP (03/14/17): gallstones without evidence of acute cholecystitis. Mild distended gallbladder. CBD is normal in caliber and shape. No evidence of choledocholithiasis. No evidence of acute pathology in upper abdomen. Gallbladder US (03/14/17): multiple gallstones and mild gallbladder wall thickening. Prominent intrahepatic biliary ducts. Proximal common bile duct measures 5.7 mm. Mildly echogenic liver suggestive of hepatic steatosis. As per Detsky's Critiera , patient's cardiac risk index is low with class I 6% complications. Surgery and anesthesia to explain risks and benefits respectively if surgery is warranted. Ciprofloxacin 400mg IVPB Q12H (active 03/15/17) Flagyl 500mg IVPB Q8H (active 03/15/17) patient is postoperative day one from lap mela. patient has had flatus per surgery team. Tolerating diet. Recommended to followup in 1-2 weeks with surgeon , PO antibiotics and Oxycodone PRN pain relief.. (2) Transaminitis--Resolving Assessment & Plan: HIDA (03/14/17): nonvisualization of gallbladder at 3 hours. Findings consistent with acute cholecystitis in appropriate clinical setting. MRCP (03/14/17): gallstones without evidence of acute cholecystitis. Mild distended gallbladder. CBD is normal in caliber and shape. No evidence of choledocholithiasis. No evidence of acute pathology in upper abdomen. Gallbladder US (03/14/17): multiple gallstones and mild gallbladder wall thickening. Prominent intrahepatic biliary ducts. Proximal common bile duct measures 5.7 mm. Mildly echogenic liver suggestive of hepatic steatosis. Tylenol level: negative Hepatitis panel: negative (3) Obesity--Chronic Assessment & Plan: Lipid panel: within normal limits hgba1c: 5.4 (4) Cholelithiasis--Chronic Assessment & Plan: HIDA (03/14/17): nonvisualization of gallbladder at 3 hours. Findings consistent with acute cholecystitis in appropriate clinical setting. aea MRCP (03/14/17): gallstones without evidence of acute cholecystitis. Mild distended gallbladder. CBD is normal in caliber and shape. No evidence of choledocholithiasis. No evidence of acute pathology in upper abdomen. Gallbladder US (03/14/17): multiple gallstones and mild gallbladder wall thickening. Prominent intrahepatic biliary ducts. Proximal common bile duct measures 5.7 mm. Mildly echogenic liver suggestive of hepatic steatosis. General surgery (Dr. Jackson) on board-->help appreciated GI (Dr. Reagan) on board-->help appreciated
[2017-03-17 17:02] VITALS: BP 133/84; PULSE 78; TEMP 98.9; O2SAT 100
--- NOTE | 2017-03-18 09:45 | OP ---
PROCEDURE DATE: 03/16/2017 PREOPERATIVE DIAGNOSIS: Acute cholecystitis. POSTOPERATIVE DIAGNOSIS: Acute cholecystitis. PROCEDURE: Laparoscopic cholecystectomy. SURGEON: Wesley Jackson MD. ASSISTANTS: Dr. Soares, PGY4; Brittney, PGY1; medical student, Rodrick. TYPE OF ANESTHESIA: General with endotracheal intubation. ANESTHESIA ADMINISTERED BY: Dr. Partida. SPECIMEN: Gallbladder. DRAINS: One Benson drain, 15-Swedish. ESTIMATED BLOOD LOSS: 10 mL. DESCRIPTION OF PROCEDURE: The patient was taken to the operating room and placed on the operating table in supine position after induction of anesthesia. The abdomen was prepped with Chloraprep and draped with a sterile drape. A supraumbilical transverse incision approximately 1 cm was made. Veress needle was introduced and a pneumoperitoneum of 15 mmHg was achieved using CO2 insufflation. An 11 mm trocar was then introduced and 10 mm camera through the trocar. Then, under direct vision, a 5 mm port was introduced as well as 2 lateral ports, both 5 mm. The gallbladder was then identified and grasped x2. The cystic duct was then skeletonized, identified, clipped and divided. The cystic artery was equally skeletonized, clipped, and divided. The gallbladder was then removed from the gallbladder bed using the cautery and gallbladder was delivered through the port using an EndoCatch. The area was irrigated. The irrigant was removed using suction. The periumbilical incision fascia was closed using PDS interrupted sutures. A 15-Swedish Benson drain was introduced into the right gutter and under the liver and the procedure was completed. The 5 mm trocars were removed and the skin then was approximated with absorbable subcuticular sutures. Sterile dressings were applied. The patient was taken to the recovery room in satisfactory condition. Wesley Jackson MD
== END 2017-03-17 23:14 | disposition home or self-care (01) | DRG 494 ==
LOC: C.ER 08:54 → C.9E 11:16 → C.3T 12:47
PROVIDERS: ADMIT Family Medicine; ATTEND Family Medicine
PROC: 0W9G30Z Drainage of Peritoneal Cavity with Drainage Device, Percutaneous Approach (ICD-10-PCS; 2017-03-16)
PROC: 0FT44ZZ Resection of Gallbladder, Percutaneous Endoscopic Approach (ICD-10-PCS; principal; 2017-03-16 16:00)
DX: K80.12 Calculus of gallbladder with acute and chronic cholecystitis without obstruction (principal); K76.0 Fatty (change of) liver, not elsewhere classified; E66.9 Obesity, unspecified; Z68.32 Body mass index [BMI] 32.0-32.9, adult; R74.0 Nonspecific elevation of levels of transaminase and lactic acid dehydrogenase [LDH]